=== PATIENT | male | born 1970 | race Caucasian/White ===

== ENCOUNTER 2018-03-12 11:09 | Inpatient (IN) | payer OTHER ==
[2018-03-12 13:16] VITALS: BMI 38.6
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
[2018-03-12] MEDS ORDERED: P-EPHED 60MG/TRIPROLIDI 2.5MG TABLET PO PRN (14:19)
[2018-03-12] MEDS ORDERED: MAGNESIUM HYDROX 2400MG/30ML ORAL SUSPENSION 30 ML CUP PO PRN (14:19)
[2018-03-12] MEDS ORDERED: MENTHOL/PHENOL 1 EACH UD MM PRN (14:19)
[2018-03-12] MEDS ORDERED: NICOTINE POLACRILEX 4 MG GUM BUC PRN ×2 (14:19→15:16)
[2018-03-12] MEDS ORDERED: hydrOXYzine PAMOATE 25 MG CAPSULE (FP) PO PRN (14:19)
[2018-03-12] MEDS ORDERED: IBUPROFEN 400 MG TABLET (FP) PO PRN (14:19)
[2018-03-12] MEDS ORDERED: MAGNESIUM CITRATE 300 ML BOTTLE PO PRN (14:19)
[2018-03-12] MEDS ORDERED: LOPERAMIDE HCL 2 MG CAPSULE PO PRN (14:19)
[2018-03-12] MEDS ORDERED: guaiFENesin/D-METHORPHAN HB 10 ML UNIT-DOSE CUPS PO PRN (14:19)
[2018-03-12] MEDS ORDERED: ACETAMINOPHEN 325 MG TABLET (FP) PO PRN (14:19)
[2018-03-12] MEDS ORDERED: MAG HYDROX/AL HYDROX/SIMETH 30 ML UNIT-DOSE CUP PO PRN (14:19)
[2018-03-12] MEDS ORDERED: ALBUTEROL SO4 8 GM HFA INHALER IH SCH (14:30)
[2018-03-12] MEDS ORDERED: diazePAM 5 MG TABLET PO ONE (15:00)
[2018-03-12] MEDS ORDERED: ALBUTEROL SO4 8 GM HFA INHALER IH PRN (15:14)
[2018-03-12] MEDS: GABAPENTIN 300 MG CAPSULE (FP) PO SCH (22:19)
[2018-03-12] MEDS: SPIRONOLACTONE 25 MG TABLET (FP) PO SCH (22:19)
[2018-03-12] MEDS: diazePAM 5 MG TABLET PO SCH (22:19)
[2018-03-12] MEDS: NYSTATIN/TRIAMCINOLONE TOPICAL CREAM 15 GM TUBE TP SCH (22:20)
[2018-03-12] MEDS: BACITRACIN 0.9 GM PACKET TP SCH (22:20)
[2018-03-12] MEDS: THIAMINE HCL 100 MG TABLET (FP) PO SCH (22:22)
[2018-03-13] MEDS: GABAPENTIN 300 MG CAPSULE (FP) PO SCH ×3 (06:03→22:07)
[2018-03-13] MEDS: diazePAM 5 MG TABLET PO SCH ×3 (06:03→22:07)
[2018-03-13] MEDS: ABACAVIR/DOLUTEGRAVIR/LAMIVUDI (TRIUMEQ) TABLET -NF PO SCH (08:28)
[2018-03-13] MEDS ORDERED: NICOTINE 21 MG/24 HOURS TOPICAL PATCH TD SCH (10:00)
[2018-03-13 10:08] LABS: HEMATOCRIT 36.4 % (35.4-49); HEMOGLOBIN 12.5 GM/dL (11.7-16.9); MCH 29.2 pg (25.7-33.7); MCHC 34.2 g/dl (32.0-35.9); MEAN CELL VOLUME 85.4 fl (80-96); MEAN PLT VOLUME 8.5 fl (7.5-11.1); PLATELET COUNT 172 K/MM3 (134-434); RBC 4.27 M/mm3 (4.00-5.60); RDW 16.9 % (11.9-15.9); WHITE BLOOD COUNT 2.1 K/mm3 (4.0-10.0)
[2018-03-13] MEDS: PRENATAL VITAMINS W/ FOLIC ACID TABLET (FP) PO SCH (10:48)
[2018-03-13] MEDS: SPIRONOLACTONE 25 MG TABLET (FP) PO SCH ×2 (10:49→22:07)
[2018-03-13] MEDS: ASPIRIN COATED 81 MG TABLET.EC PO SCH (10:49)
[2018-03-13] MEDS: BACITRACIN 0.9 GM PACKET TP SCH ×2 (10:49→22:07)
[2018-03-13] MEDS: NICOTINE 7 MG/24 HOURS TOPICAL PATCH TD SCH (10:49)
[2018-03-13] MEDS: NYSTATIN/TRIAMCINOLONE TOPICAL CREAM 15 GM TUBE TP SCH ×2 (10:49→22:07)
[2018-03-13 11:23] LABS: ALBUMIN 2.9 g/dl (3.4-5.0); ALK PHOS 122 U/L (45-117); ANION GAP 5 MMOL/L (8-16); BILIRUBIN,TOTAL 0.4 mg/dL (0.2-1); BLOOD UREA NITROGEN 23 mg/dL (7-18); CHLORIDE 105 mmol/L (98-107); CO2 28 mmol/L (21-32); CREATININE 0.8 mg/dL (0.55-1.3); GLUCOSE,RANDOM 66 mg/dL (74-106); POTASSIUM 4.2 mmol/L (3.5-5.1); SGOT/AST 47 U/L (15-37); SGPT/ALT 48 U/L (13-61); SODIUM 139 mmol/L (136-145); TOT PROT 6.4 g/dl (6.4-8.2)
[2018-03-13] MEDS ORDERED: ONDANSETRON *ODT* 4 MG TABLET SL PRN (11:42)
--- NOTE | 2018-03-13 11:42 | PN ---
S CIWA - CIWA Score Nausea/Vomitin-Mild Nausea/No Vomiting Muscle Tremors: 4-Moderate,w/Arms Extend Anxiety: 4-Mod. Anxious/Guarded Agitation: 4-Moderately Restless Paroxysmal Sweats: 3 Orientation: 0-Oriented Tacttile Disturbances: 0-None Auditory Disturbances: 0-None Visual Disturbances: 0-None Headache: 0-None Present CIWA-Ar Total Score: 16 BHS Progress Note (SOAP) Subjective: nausea chills sweats body aches interrupted sleep diarrhea Objective: 03/13/18 11:41 Vital Signs Temperature 99.1 F 03/13/18 09:08 Pulse Rate 75 03/13/18 09:08 Respiratory Rate 18 03/13/18 09:08 Blood Pressure 155/89 03/13/18 09:08 O2 Sat by Pulse Oximetry (%) Laboratory Tests 03/13/18 03/13/18 07:00 07:00 WBC 2.1 L RBC 4.27 Hgb 12.5 Hct 36.4 MCV 85.4 MCH 29.2 MCHC 34.2 RDW 16.9 H Plt Count 172 MPV 8.5 Sodium 139 Potassium 4.2 Chloride 105 Carbon Dioxide 28 Anion Gap 5 L BUN 23 H Creatinine 0.8 Creat Clearance w eGFR > 60 Random Glucose 66 L Calcium 8.0 L Total Bilirubin 0.4 AST 47 H ALT 48 Alkaline Phosphatase 122 H Total Protein 6.4 Albumin 2.9 L aaox3 ambulating no acute distress Assessment: 03/13/18 11:41 withdrawal sx Plan: continue detox increase fluids zofran sl prn immodium prn motrin 600mg prn
[2018-03-13] MEDS: THIAMINE HCL 100 MG TABLET (FP) PO SCH (22:07)
[2018-03-13] MEDS: MELATONIN 5 MG TABLETS PO PRN (22:08)
[2018-03-13] MEDS: IBUPROFEN 600 MG TABLET (FP) PO PRN (22:08)
[2018-03-14] MEDS: GABAPENTIN 300 MG CAPSULE (FP) PO SCH ×3 (05:36→21:46)
[2018-03-14] MEDS: diazePAM 5 MG TABLET PO PRN ×2 (05:37→13:58)
[2018-03-14] MEDS: ABACAVIR/DOLUTEGRAVIR/LAMIVUDI (TRIUMEQ) TABLET -NF PO SCH (08:01)
--- NOTE | 2018-03-14 09:02 | PN ---
[facility] CIWA - CIWA Score Nausea/Vomitin-Mild Nausea/No Vomiting Muscle Tremors: 4-Moderate,w/Arms Extend Anxiety: 3 Agitation: 3 Paroxysmal Sweats: 3 Orientation: 0-Oriented Tacttile Disturbances: 0-None Auditory Disturbances: 0-None Visual Disturbances: 0-None Headache: 0-None Present CIWA-Ar Total Score: 14 S Progress Note (SOAP) Subjective: dry skin nausea diarrhea interrupted sleep Objective: 03/14/18 08:50 Vital Signs Temperature 98.1 F 03/14/18 06:00 Pulse Rate 61 03/14/18 06:00 Respiratory Rate 20 03/14/18 06:00 Blood Pressure 102/58 L 03/14/18 06:00 O2 Sat by Pulse Oximetry (%) Laboratory Tests 03/13/18 03/13/18 07:00 07:00 WBC 2.1 L RBC 4.27 Hgb 12.5 Hct 36.4 MCV 85.4 MCH 29.2 MCHC 34.2 RDW 16.9 H Plt Count 172 MPV 8.5 Sodium 139 Potassium 4.2 Chloride 105 Carbon Dioxide 28 Anion Gap 5 L BUN 23 H Creatinine 0.8 Creat Clearance w eGFR > 60 Random Glucose 66 L Calcium 8.0 L Total Bilirubin 0.4 AST 47 H ALT 48 Alkaline Phosphatase 122 H Total Protein 6.4 Albumin 2.9 L aaox3 ambulating no acute distress Assessment: 03/14/18 08:50 withdrawal sx Plan: increase fluids continue detox eucerin
[2018-03-14] MEDS: PRENATAL VITAMINS W/ FOLIC ACID TABLET (FP) PO SCH (10:23)
[2018-03-14] MEDS: BACITRACIN 0.9 GM PACKET TP SCH ×2 (10:23→21:46)
[2018-03-14] MEDS: ASPIRIN COATED 81 MG TABLET.EC PO SCH (10:23)
[2018-03-14] MEDS: NYSTATIN/TRIAMCINOLONE TOPICAL CREAM 15 GM TUBE TP SCH ×2 (10:24→22:52)
[2018-03-14] MEDS: diazePAM 5 MG TABLET PO SCH ×2 (10:24→21:46)
[2018-03-14] MEDS: NICOTINE 7 MG/24 HOURS TOPICAL PATCH TD SCH (10:24)
[2018-03-14] MEDS: SPIRONOLACTONE 25 MG TABLET (FP) PO SCH ×2 (10:24→21:45)
[2018-03-14] MEDS: THIAMINE HCL 100 MG TABLET (FP) PO SCH (21:47)
[2018-03-15] MEDS: GABAPENTIN 300 MG CAPSULE (FP) PO SCH ×3 (05:51→22:25)
[2018-03-15] MEDS: diazePAM 5 MG TABLET PO PRN (05:53)
[2018-03-15] MEDS: ABACAVIR/DOLUTEGRAVIR/LAMIVUDI (TRIUMEQ) TABLET -NF PO SCH (08:08)
[2018-03-15] MEDS: BACITRACIN 0.9 GM PACKET TP SCH ×2 (10:35→22:24)
[2018-03-15] MEDS: PRENATAL VITAMINS W/ FOLIC ACID TABLET (FP) PO SCH (10:35)
[2018-03-15] MEDS: SPIRONOLACTONE 25 MG TABLET (FP) PO SCH ×2 (10:35→22:24)
[2018-03-15] MEDS: ASPIRIN COATED 81 MG TABLET.EC PO SCH (10:35)
[2018-03-15] MEDS: diazePAM 5 MG TABLET PO SCH ×2 (10:35→22:24)
[2018-03-15] MEDS: NYSTATIN/TRIAMCINOLONE TOPICAL CREAM 15 GM TUBE TP SCH ×2 (10:36→22:25)
[2018-03-15] MEDS: NICOTINE 7 MG/24 HOURS TOPICAL PATCH TD SCH (10:36)
--- NOTE | 2018-03-15 14:13 | PN ---
BHS Progress Note (SOAP) Subjective: Diarrhea, N/V, lower abdominal pain, shakes and sweats Objective: 03/15/18 14:13 Vital Signs - 8 hr 03/15/18 03/15/18 03/15/18 07:27 09:33 14:09 Temperature 97.7 F 97.7 F 97.9 F Pulse Rate 72 70 89 Respiratory 20 16 16 Rate Blood Pressure 118/67 136/66 150/92 Laboratory Last Values WBC 2.1 K/mm3 (4.0-10.0) L 03/13/18 07:00 RBC 4.27 M/mm3 (4.00-5.60) 03/13/18 07:00 Hgb 12.5 GM/dL (11.7-16.9) 03/13/18 07:00 Hct 36.4 % (35.4-49) 03/13/18 07:00 MCV 85.4 fl (80-96) 03/13/18 07:00 MCH 29.2 pg (25.7-33.7) 03/13/18 07:00 MCHC 34.2 g/dl (32.0-35.9) 03/13/18 07:00 RDW 16.9 % (11.9-15.9) H 03/13/18 07:00 Plt Count 172 K/MM3 (134-434) 03/13/18 07:00 MPV 8.5 fl (7.5-11.1) 03/13/18 07:00 Sodium 139 mmol/L (136-145) 03/13/18 07:00 Potassium 4.2 mmol/L (3.5-5.1) 03/13/18 07:00 Chloride 105 mmol/L (98-107) 03/13/18 07:00 Carbon Dioxide 28 mmol/L (21-32) 03/13/18 07:00 Anion Gap 5 MMOL/L (8-16) L 03/13/18 07:00 BUN 23 mg/dL (7-18) H 03/13/18 07:00 Creatinine 0.8 mg/dL (0.55-1.3) 03/13/18 07:00 Creat Clearance w eGFR > 60 (>60) 03/13/18 07:00 Random Glucose 66 mg/dL (74-106) L 03/13/18 07:00 Calcium 8.0 mg/dL (8.5-10.1) L 03/13/18 07:00 Total Bilirubin 0.4 mg/dL (0.2-1) 03/13/18 07:00 AST 47 U/L (15-37) H 03/13/18 07:00 ALT 48 U/L (13-61) 03/13/18 07:00 Alkaline Phosphatase 122 U/L (45-117) H 03/13/18 07:00 Total Protein 6.4 g/dl (6.4-8.2) 03/13/18 07:00 Albumin 2.9 g/dl (3.4-5.0) L 03/13/18 07:00 RPR Titer Nonreactive (NONREACTIVE) 03/13/18 07:00 Labs noted Assessment: 03/15/18 14:13 Withdrawal sx Plan: Continue detox
[2018-03-15] MEDS: IBUPROFEN 600 MG TABLET (FP) PO PRN (22:25)
[2018-03-15] MEDS: MELATONIN 5 MG TABLETS PO PRN (22:25)
[2018-03-15] MEDS: THIAMINE HCL 100 MG TABLET (FP) PO SCH (22:52)
[2018-03-16] MEDS: GABAPENTIN 300 MG CAPSULE (FP) PO SCH (07:47)
[2018-03-16] MEDS: ABACAVIR/DOLUTEGRAVIR/LAMIVUDI (TRIUMEQ) TABLET -NF PO SCH (07:48)
[2018-03-16 09:56] VITALS: BP 105/60; PULSE 71; TEMP 97.5
[2018-03-16] MEDS ORDERED: diazePAM 5 MG TABLET PO SCH (10:00)
[2018-03-16] MEDS: PRENATAL VITAMINS W/ FOLIC ACID TABLET (FP) PO SCH (10:10)
[2018-03-16] MEDS: SPIRONOLACTONE 25 MG TABLET (FP) PO SCH (10:11)
[2018-03-16] MEDS: BACITRACIN 0.9 GM PACKET TP SCH (10:11)
[2018-03-16] MEDS: NYSTATIN/TRIAMCINOLONE TOPICAL CREAM 15 GM TUBE TP SCH (10:11)
[2018-03-16] MEDS: ASPIRIN COATED 81 MG TABLET.EC PO SCH (10:11)
[2018-03-16] MEDS: NICOTINE 7 MG/24 HOURS TOPICAL PATCH TD SCH (10:11)
--- NOTE | 2018-03-16 13:09 | DS ---
[facility] Detox Discharge Summary Admission Date: 03/12/18 Discharge Date: 03/16/18 - History Present History: Alcohol Dependence, Sedative Dependence Additional Comments: 47 years old male admitted on 03/12/18 for alcohol and benzo withdrawal sx completed detox regimen tolerated well alert no acute distress aftercare [facility] - Physical Exam Results Vital Signs: Vital Signs Temperature 97.5 F L 03/16/18 09:56 Pulse Rate 71 03/16/18 09:56 Respiratory Rate 16 03/16/18 09:56 Blood Pressure 105/60 03/16/18 09:56 O2 Sat by Pulse Oximetry (%) Pertinent Admission Physical Exam Findings: alcohol and benzo withdrawal sx Vital Signs Temperature 97.5 F L 03/16/18 09:56 Pulse Rate 71 03/16/18 09:56 Respiratory Rate 16 03/16/18 09:56 Blood Pressure 105/60 03/16/18 09:56 O2 Sat by Pulse Oximetry (%) Laboratory Last Values WBC 2.1 K/mm3 (4.0-10.0) L 03/13/18 07:00 RBC 4.27 M/mm3 (4.00-5.60) 03/13/18 07:00 Hgb 12.5 GM/dL (11.7-16.9) 03/13/18 07:00 Hct 36.4 % (35.4-49) 03/13/18 07:00 MCV 85.4 fl (80-96) 03/13/18 07:00 MCH 29.2 pg (25.7-33.7) 03/13/18 07:00 MCHC 34.2 g/dl (32.0-35.9) 03/13/18 07:00 RDW 16.9 % (11.9-15.9) H 03/13/18 07:00 Plt Count 172 K/MM3 (134-434) 03/13/18 07:00 MPV 8.5 fl (7.5-11.1) 03/13/18 07:00 Sodium 139 mmol/L (136-145) 03/13/18 07:00 Potassium 4.2 mmol/L (3.5-5.1) 03/13/18 07:00 Chloride 105 mmol/L (98-107) 03/13/18 07:00 Carbon Dioxide 28 mmol/L (21-32) 03/13/18 07:00 Anion Gap 5 MMOL/L (8-16) L 03/13/18 07:00 BUN 23 mg/dL (7-18) H 03/13/18 07:00 Creatinine 0.8 mg/dL (0.55-1.3) 03/13/18 07:00 Creat Clearance w eGFR > 60 (>60) 03/13/18 07:00 Random Glucose 66 mg/dL (74-106) L 03/13/18 07:00 Calcium 8.0 mg/dL (8.5-10.1) L 03/13/18 07:00 Total Bilirubin 0.4 mg/dL (0.2-1) 03/13/18 07:00 AST 47 U/L (15-37) H 03/13/18 07:00 ALT 48 U/L (13-61) 03/13/18 07:00 Alkaline Phosphatase 122 U/L (45-117) H 03/13/18 07:00 Total Protein 6.4 g/dl (6.4-8.2) 03/13/18 07:00 Albumin 2.9 g/dl (3.4-5.0) L 03/13/18 07:00 RPR Titer Nonreactive (NONREACTIVE) 03/13/18 07:00 lab noted [facility] Hospital Course: Detox Protocol Followed, Detoxed Safely, Responded well, Discharged Condition Good, Rehab Referral Accepted Patient has Accepted a Rehab Referral to: [facility] - Medication Discharge Medications: Ambulatory Orders Albuterol Sulfate Inhaler - [Ventolin HFA Inhaler -] 2 inh PO Q4H #1 canister Gabapentin [Neurontin -] 600 mg PO TID #90 capsule 04/02/14 Spironolactone 50 mg PO BID #30 tablet 04/02/14 Abacavir/Dolutegravir/Lamivudi [Triumeq 600-50-300 mg Tablet] 1 each PO DAILY Aspirin [Aspirin EC] 81 mg PO DAILY 03/12/18 Quetiapine Fumarate [Seroquel -] 50 mg PO HS 03/12/18 - Diagnosis (1) Sedative, hypnotic or anxiolytic dependence with withdrawal, uncomplicated Status: Acute (2) Asthma Status: Chronic Qualifiers: Asthma severity: mild Asthma persistence: intermittent Asthma complication type: with status asthmaticus Qualified Code(s): J45.22 - Mild intermittent asthma with status asthmaticus (3) AIDS (acquired immune deficiency syndrome) Status: Chronic (4) Alcohol dependence, episodic drinking behavior Status: Acute - AMA Did Patient Leave Against Medical Advice: No
== END 2018-03-16 11:06 | disposition other institution (70) | DRG 774 ==
LOC: YASAS 11:09 → Y6N 14:37
PROC: HZ2ZZZZ Detoxification Services for Substance Abuse Treatment (ICD-10-PCS; principal; 2018-03-12)
DX: F10.230 Alcohol dependence with withdrawal, uncomplicated (principal); F13.230 Sedative, hypnotic or anxiolytic dependence with withdrawal, uncomplicated; F14.20 Cocaine dependence, uncomplicated; F19.24 Other psychoactive substance dependence with psychoactive substance-induced mood disorder; F32.9 Major depressive disorder, single episode, unspecified; B20 Human immunodeficiency virus [HIV] disease; J45.22 Mild intermittent asthma with status asthmaticus; G62.9 Polyneuropathy, unspecified; B18.2 Chronic viral hepatitis C; M54.5 Low back pain; G89.29 Other chronic pain; M46.90 Unspecified inflammatory spondylopathy, site unspecified; M12.9 Arthropathy, unspecified; Z88.2 Allergy status to sulfonamides; Z88.1 Allergy status to other antibiotic agents; Z91.013 Allergy to seafood; Z85.72 Personal history of non-Hodgkin lymphomas
CPT/HCPCS: 36415; 80053; 85027; 86593

== ENCOUNTER 2018-03-16 11:08 | Inpatient (IN) | payer OTHER ==
[2018-03-16] MEDS ORDERED: NICOTINE 14 MG/24 HOURS TOPICAL PATCH TD PRN (13:12)
[2018-03-16] MEDS ORDERED: MAG HYDROX/AL HYDROX/SIMETH 30 ML UNIT-DOSE CUP PO PRN (13:12)
[2018-03-16] MEDS ORDERED: NICOTINE POLACRILEX 2 MG GUM BUC PRN (13:12)
[2018-03-16] MEDS ORDERED: MAGNESIUM CITRATE 300 ML BOTTLE PO PRN (13:12)
[2018-03-16] MEDS ORDERED: LOPERAMIDE HCL 2 MG CAPSULE PO PRN (13:12)
[2018-03-16] MEDS ORDERED: P-EPHED 60MG/TRIPROLIDI 2.5MG TABLET PO PRN (13:12)
[2018-03-16] MEDS ORDERED: MENTHOL/PHENOL 1 EACH UD MM PRN (13:12)
[2018-03-16] MEDS ORDERED: ACETAMINOPHEN 325 MG TABLET (FP) PO PRN (13:12)
[2018-03-16] MEDS ORDERED: MAGNESIUM HYDROX 2400MG/30ML ORAL SUSPENSION 30 ML CUP PO PRN (13:12)
[2018-03-16] MEDS ORDERED: IBUPROFEN 400 MG TABLET (FP) PO PRN (13:12)
[2018-03-16] MEDS ORDERED: guaiFENesin/D-METHORPHAN HB 10 ML UNIT-DOSE CUPS PO PRN (13:12)
--- NOTE | 2018-03-16 13:12 | HP ---
[facility] Rehab Assess/Revision - Admission History Admitted to Rehab from: [facility] Date of Admission to Rehab: 03/16/18 - Vital signs Vital Signs: Vital Signs Period Temp Pulse Resp BP Sys/Colon Pulse Ox Last 24 Hr 98.1 F 74 18 111/64 - Findings Detox History & Physical reviewed: Yes Concur with findings: Yes Comments/Additional Findings: transferred from detox to rehab admission as per protocol Inpatient Rehab Admission - Initial Determination Are CD services needed?: Yes Free of communicable disease: Yes Not in need of hospitalization: Yes - Rehab Admission Criteria Previous failed treatment: Yes Poor recovery environment: Yes Comorbidities: Yes Lacks judgement: No Patient is meeting Inpatient Rehab admission criteria:: Yes
[2018-03-16] MEDS ORDERED: ALBUTEROL SO4 8 GM HFA INHALER IH PRN (13:13)
[2018-03-16] MEDS: GABAPENTIN 300 MG CAPSULE (FP) PO SCH ×2 (14:05→22:49)
--- NOTE | 2018-03-16 15:27 | PN ---
S Progress Note Note: Psychiatric nurse practitioner administrative receptionist note: Patient transferred from 3E to 6N. Chart reviewed. Patient did not receive psychotropic medications while in detox. Patient requesting seroquel. No recent prescription of seroquel noted on pharmacy claims. Patient encouraged to accept melatonin for sleep and to speak to unit psychiatrist in the morning.
[2018-03-16] MEDS ORDERED: MELATONIN 5 MG TABLETS PO PRN (22:00)
[2018-03-16] MEDS: SPIRONOLACTONE 25 MG TABLET (FP) PO SCH (22:49)
[2018-03-16] MEDS: THIAMINE HCL 100 MG TABLET (FP) PO SCH (22:50)
[2018-03-17] MEDS: GABAPENTIN 300 MG CAPSULE (FP) PO SCH ×3 (06:41→21:34)
[2018-03-17] MEDS ORDERED: PT OWN MED DRAWER 7, Y5N ONE (08:45)
[2018-03-17] MEDS ORDERED: PATIENT'S OWN MEDICATION (NON-FORMULARY) (Abacavir/Dolutegravir/Lamivudi [Triumeq 600-50-3 PO SCH (10:00)
[2018-03-17] MEDS ORDERED: ABACAVIR/DOLUTEGRAVIR/LAMIVUDI (TRIUMEQ) TABLET -NF PO SCH (10:00)
[2018-03-17] MEDS: DOLUTEGRAVIR SODIUM 50 MG TABLET (NON-FORMULARY) PO SCH (10:43)
[2018-03-17] MEDS: SPIRONOLACTONE 25 MG TABLET (FP) PO SCH ×2 (10:43→21:33)
[2018-03-17] MEDS: LIDOCAINE 5% TOPICAL PATCH TP SCH (10:45)
[2018-03-17] MEDS: PRENATAL VITAMINS W/ FOLIC ACID TABLET (FP) PO SCH (10:45)
[2018-03-17] MEDS: ABACAVIR SULFATE 300 MG TABLET PO SCH (10:49)
--- NOTE | 2018-03-17 11:31 | PN ---
BHS Progress Note Note: PATIENT SEEN FOR C/O LOWER PELVIC AREA SPASMS. PATIENT DENIES FREQUENCY, URGENCY AND BURNING UPON URINATION. PATIENT STATES HAVING DIARRHEA AND GIVEN IMMODIUM WITH MILD RELIEF. Vital Signs Temperature 98.4 F 03/17/18 07:13 Pulse Rate 78 03/17/18 07:13 Respiratory Rate 18 03/17/18 07:13 Blood Pressure 109/66 03/17/18 07:13 O2 Sat by Pulse Oximetry (%) PE: ALERT AND ORIENTED X 3 SKIN WARM AND DRY CAR S1S2 RESP CTA BL GI SOFT, BS+, MILD TENDERNESS TO MID-LOWER ABDOMINAL/PELVIC AREA EXT FULL ROM A/P: BLADDER SPASMS WILL ORDER UA ENCOURAGE ORAL FLUIDS CONTINUE TO MONITOR CLINICALLY
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
[2018-03-17] MEDS: THIAMINE HCL 100 MG TABLET (FP) PO SCH (21:34)
[2018-03-17] MEDS ORDERED: LIDOCAINE PATCH REMOVAL MC SCH (22:00)
[2018-03-18] MEDS: GABAPENTIN 300 MG CAPSULE (FP) PO SCH ×2 (06:51→14:30)
[2018-03-18 07:13] VITALS: BP 101/65; PULSE 71; TEMP 97.6
[2018-03-18] MEDS: LIDOCAINE 5% TOPICAL PATCH TP SCH (10:06)
[2018-03-18] MEDS: SPIRONOLACTONE 25 MG TABLET (FP) PO SCH (10:06)
[2018-03-18] MEDS: PRENATAL VITAMINS W/ FOLIC ACID TABLET (FP) PO SCH (10:08)
[2018-03-18] MEDS ORDERED: PT OWN MED DRAWER 7, Y5N ONE (10:08)
[2018-03-18] MEDS: ABACAVIR SULFATE 300 MG TABLET PO SCH (11:47)
[2018-03-18] MEDS: DOLUTEGRAVIR SODIUM 50 MG TABLET (NON-FORMULARY) PO SCH (11:47)
[2018-03-18] MEDS ORDERED: ABACAVIR/DOLUTEGRAVIR/LAMIVUDI (TRIUMEQ) TABLET -NF PO SCH (12:00)
--- NOTE | 2018-03-18 15:23 | PN ---
S Progress Note Note: Psychiatric nurse practitioner note: Call received by RN stating patient is leaving rehab. States she is no longer interested in remaining in rehab. Patient signing out of 3E rehabilitation.
[2018-03-18 17:23] LABS: URINE APPEARANCE CLEAR; URINE BILIRUBIN NEGATIVE (<2.0 mg/dL); URINE COLOR STRAW; URINE GLUCOSE (UA) NEGATIVE (NEGATIVE); URINE KETONE NEGATIVE (NEGATIVE); URINE LEUK ESTERASE NEGATIVE (NEGATIVE); URINE NITRITE NEGATIVE (NEGATIVE); URINE PROTEIN NEGATIVE (NEGATIVE); URINE UROBILINOGEN NEGATIVE mg/dL (0.2-1.0)
[2018-03-19] MEDS ORDERED: ASPIRIN COATED 81 MG TABLET.EC PO SCH (10:00)
== END 2018-03-18 15:30 | disposition left against medical advice (07) | DRG 770 ==
LOC: YASAS 11:08 → Y3E 11:10
PROVIDERS: ADMIT Psychiatry & Neurology Psychiatry; ATTEND Psychiatry & Neurology Psychiatry
PROC: HZ42ZZZ Group Counseling for Substance Abuse Treatment, Cognitive-Behavioral (ICD-10-PCS; principal; 2018-03-16)
DX: F10.20 Alcohol dependence, uncomplicated (principal); F13.20 Sedative, hypnotic or anxiolytic dependence, uncomplicated; F14.20 Cocaine dependence, uncomplicated; F19.24 Other psychoactive substance dependence with psychoactive substance-induced mood disorder; B20 Human immunodeficiency virus [HIV] disease; J45.22 Mild intermittent asthma with status asthmaticus; M54.5 Low back pain; G89.29 Other chronic pain; G62.9 Polyneuropathy, unspecified; N32.89 Other specified disorders of bladder; Z88.2 Allergy status to sulfonamides; Z88.1 Allergy status to other antibiotic agents; Z91.013 Allergy to seafood
CPT/HCPCS: 81003

== ENCOUNTER 2018-04-09 08:19 | Inpatient (IN) | payer OTHER ==
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
[2018-04-09] MEDS ORDERED: chlordiazePOXIDE HCL 25 MG CAPSULE PO PRN (09:26)
[2018-04-09] MEDS ORDERED: ACETAMINOPHEN 325 MG TABLET (FP) PO PRN (09:26)
[2018-04-09] MEDS ORDERED: P-EPHED 60MG/TRIPROLIDI 2.5MG TABLET PO PRN (09:26)
[2018-04-09] MEDS ORDERED: MENTHOL/PHENOL 1 EACH UD MM PRN (09:26)
[2018-04-09] MEDS ORDERED: MAG HYDROX/AL HYDROX/SIMETH 30 ML UNIT-DOSE CUP PO PRN (09:26)
[2018-04-09] MEDS ORDERED: MAGNESIUM CITRATE 300 ML BOTTLE PO PRN (09:26)
[2018-04-09] MEDS ORDERED: guaiFENesin/D-METHORPHAN HB 10 ML UNIT-DOSE CUPS PO PRN (09:26)
[2018-04-09] MEDS ORDERED: MAGNESIUM HYDROX 2400MG/30ML ORAL SUSPENSION 30 ML CUP PO PRN (09:26)
[2018-04-09] MEDS ORDERED: IBUPROFEN 400 MG TABLET (FP) PO PRN (09:26)
[2018-04-09 09:28] VITALS: BMI 40.4
[2018-04-09] MEDS: BACITRACIN 0.9 GM PACKET TP SCH ×2 (11:12→22:11)
[2018-04-09] MEDS: SPIRONOLACTONE 25 MG TABLET (FP) PO SCH ×2 (11:12→21:34)
[2018-04-09] MEDS: ASPIRIN COATED 81 MG TABLET.EC PO SCH (11:12)
[2018-04-09] MEDS: chlordiazePOXIDE HCL 25 MG CAPSULE PO SCH ×3 (11:13→22:11)
[2018-04-09] MEDS: PRENATAL VITAMINS W/ FOLIC ACID TABLET (FP) PO SCH (11:13)
[2018-04-09] MEDS: NICOTINE 14 MG/24 HOURS TOPICAL PATCH TD SCH (11:14)
[2018-04-09] MEDS: ALBUTEROL SO4 8 GM HFA INHALER IH SCH ×4 (11:14→21:33)
[2018-04-09] MEDS: CLOTRIMAZOLE 10 MG TROCHE (FP) PO SCH ×3 (13:28→21:36)
[2018-04-09] MEDS: GABAPENTIN 300 MG CAPSULE (FP) PO SCH ×2 (13:28→21:33)
[2018-04-09] MEDS: AMOXICILLIN 500 MG CAPSULE (FP) PO SCH ×2 (13:28→21:34)
[2018-04-09 15:08] LABS: URINE APPEARANCE SLCLOUDY; URINE BILIRUBIN NEGATIVE (<2.0 mg/dL); URINE COLOR YELLOW; URINE GLUCOSE (UA) NEGATIVE (NEGATIVE); URINE KETONE NEGATIVE (NEGATIVE); URINE LEUK ESTERASE NEGATIVE (NEGATIVE); URINE NITRITE NEGATIVE (NEGATIVE); URINE PROTEIN NEGATIVE (NEGATIVE)
[2018-04-09] MEDS: THIAMINE HCL 100 MG TABLET (FP) PO SCH (21:34)
[2018-04-09] MEDS ORDERED: MELATONIN 5 MG TABLETS PO PRN (22:00)
[2018-04-10] MEDS: ALBUTEROL SO4 8 GM HFA INHALER IH SCH (01:30)
[2018-04-10] MEDS: ALBUTEROL SO4 8 GM HFA INHALER IH PRN ×2 (03:08→09:08)
[2018-04-10] MEDS: chlordiazePOXIDE HCL 25 MG CAPSULE PO SCH ×4 (05:36→22:22)
[2018-04-10] MEDS: CLOTRIMAZOLE 10 MG TROCHE (FP) PO SCH ×5 (05:37→22:27)
[2018-04-10] MEDS: AMOXICILLIN 500 MG CAPSULE (FP) PO SCH ×3 (05:37→22:22)
[2018-04-10] MEDS: GABAPENTIN 300 MG CAPSULE (FP) PO SCH ×3 (05:38→22:23)
[2018-04-10 10:11] LABS: HEMATOCRIT 37.7 % (35.4-49); MCH 27.9 pg (25.7-33.7); MCHC 31.9 g/dl (32.0-35.9); MEAN CELL VOLUME 87.6 fl (80-96); MEAN PLT VOLUME 8.6 fl (7.5-11.1); PLATELET COUNT 203 K/MM3 (134-434); RBC 4.31 M/mm3 (4.00-5.60); RDW 16.6 % (11.9-15.9); WHITE BLOOD COUNT 3.4 K/mm3 (4.0-10.0)
[2018-04-10 10:14] LABS: ALBUMIN 3.2 g/dl (3.4-5.0); ALK PHOS 144 U/L (45-117); ANION GAP 5 MMOL/L (8-16); BILIRUBIN,TOTAL 0.2 mg/dL (0.2-1); BLOOD UREA NITROGEN 14 mg/dL (7-18); CALCIUM 8.4 mg/dL (8.5-10.1); CHLORIDE 109 mmol/L (98-107); CO2 27 mmol/L (21-32); GLUCOSE,RANDOM 94 mg/dL (74-106); SGOT/AST 29 U/L (15-37); SGPT/ALT 33 U/L (13-61); SODIUM 141 mmol/L (136-145); TOT PROT 7.1 g/dl (6.4-8.2)
[2018-04-10] MEDS ORDERED: ALBUTEROL SO4 2.5/IPRATROPIUM 0.5 INH SOL 3 ML VIAL.NEB. NEB ONE (10:19)
[2018-04-10] MEDS ORDERED: ALBUTEROL SO4 2.5/IPRATROPIUM 0.5 INH SOL 3 ML VIAL.NEB. NEB PRN (10:19)
[2018-04-10] MEDS: predniSONE 20 MG TABLET (UD) PO SCH (11:03)
[2018-04-10] MEDS: PRENATAL VITAMINS W/ FOLIC ACID TABLET (FP) PO SCH (11:04)
[2018-04-10] MEDS: ASPIRIN COATED 81 MG TABLET.EC PO SCH (11:05)
[2018-04-10] MEDS: BACITRACIN 0.9 GM PACKET TP SCH ×2 (11:05→22:48)
[2018-04-10] MEDS: SPIRONOLACTONE 25 MG TABLET (FP) PO SCH ×2 (11:05→22:23)
[2018-04-10] MEDS: NICOTINE 14 MG/24 HOURS TOPICAL PATCH TD SCH (11:21)
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
--- NOTE | 2018-04-10 14:20 | PN ---
[facility] CIWA - CIWA Score Nausea/Vomitin-No Nausea/No Vomiting Muscle Tremors: None Anxiety: 4-Mod. Anxious/Guarded Agitation: 4-Moderately Restless Paroxysmal Sweats: 2 Orientation: 0-Oriented Tacttile Disturbances: 3-Moderate Itch/Numb/Burn Auditory Disturbances: 0-None Visual Disturbances: 1-Very Mild Sensitivity Headache: 0-None Present CIWA-Ar Total Score: 14 BHS Progress Note (SOAP) Subjective: Anxious, Restless, Interrupted Sleep. Patient reports Shortness of Breath that started earlier today. Patient reports history of Asthma and Chronic Emphysema. Objective: PATIENT A & O X 3, OBSERVED AMBULATING ON UNIT. WHEEZING AUSCULTATED BILATERALLY IN LUNGS. PATIENT APPEARS DYSPNIEC, VOICE SOUNDS SOMEWHAT HOARSE IN RELATION TO HOW IT SOUNDED YESTERDAY. 04/10/18 14:22 Vital Signs Temperature 98.1 F 04/10/18 09:05 Pulse Rate 81 04/10/18 09:05 Respiratory Rate 18 04/10/18 09:05 Blood Pressure 107/60 04/10/18 09:05 O2 Sat by Pulse Oximetry (%) Laboratory Tests 04/09/18 04/10/18 04/10/18 13:00 06:00 06:00 WBC 3.4 L RBC 4.31 Hgb 12.0 Hct 37.7 MCV 87.6 MCH 27.9 MCHC 31.9 L RDW 16.6 H Plt Count 203 MPV 8.6 Sodium 141 Potassium 4.0 Chloride 109 H Carbon Dioxide 27 Anion Gap 5 L BUN 14 Creatinine 1.0 Creat Clearance w eGFR > 60 Random Glucose 94 Calcium 8.4 L Total Bilirubin 0.2 AST 29 ALT 33 Alkaline Phosphatase 144 H Total Protein 7.1 Albumin 3.2 L Urine Color Yellow Urine Appearance Slcloudy Urine pH 5.0 D Ur Specific [place] 1.025 Urine Protein Negative Urine Glucose (UA) Negative Urine Ketones Negative Urine Blood Negative Urine Nitrite Negative Urine Bilirubin Negative Urine Urobilinogen 2.0 Ur Leukocyte Esterase Negative RPR Titer 04/10/18 06:00 WBC RBC Hgb Hct MCV MCH MCHC RDW Plt Count MPV Sodium Potassium Chloride Carbon Dioxide Anion Gap BUN Creatinine Creat Clearance w eGFR Random Glucose Calcium Total Bilirubin AST ALT Alkaline Phosphatase Total Protein Albumin Urine Color Urine Appearance Urine pH Ur Specific [place] Urine Protein Urine Glucose (UA) Urine Ketones Urine Blood Urine Nitrite Urine Bilirubin Urine Urobilinogen Ur Leukocyte Esterase RPR Titer Nonreactive LABS NOTED. PATIENT HAS HAD LOW WBC LEVELS ON PREVIOUS ADMISSIONS. 04/10/18 14:25 Assessment: 04/10/18 14:24 WITHDRAWAL SYMPTOMS. LEUKOPENIA. ACUTE ASTHMA EXACERBATION. 04/10/18 14:25 Plan: CONTINUE DETOX. PREDNISONE, 20 MG PO DAILY (FIRST DOSE STAT). MONTELEUKAST, PO HS ORDERED. SPIRIVA RESPIMAT, 1 INHALATION DAILY (FIRST DOSE NOW) ORDERED (PATIENT REPORTS HISTORY OF TAKING OUTPATIENT). SYMBICORT, 80/4.5, 2 INH BID (FIRST DOSE NOW) ORDERED (PATIENT REPORTS HISTORY OF TAKING DULERA OUTPATIENT, DULERA NOT CURRENTLY AVAILABLE IN [facility]) . ALBUTEROL NEBULIZER PRN ORDERED.
[2018-04-10] MEDS: BUDESONIDE/FORMETEROL FUMARATE 80/4.5 mcg INHALER IH SCH ×2 (15:01→22:24)
[2018-04-10] MEDS: TIOTROPIUM BROMIDE 2.5 MCG (SPIRIVA) RESPIMAT INHALER IH SCH (15:01)
[2018-04-10] MEDS: MONTELUKAST NA 10 MG TABLET PO SCH (22:22)
[2018-04-10] MEDS: THIAMINE HCL 100 MG TABLET (FP) PO SCH (22:22)
[2018-04-10] MEDS: QUEtiapine FUMARATE 50 MG TABLET PO SCH (22:24)
[2018-04-11] MEDS: GABAPENTIN 300 MG CAPSULE (FP) PO SCH ×3 (06:16→22:33)
[2018-04-11] MEDS: chlordiazePOXIDE HCL 25 MG CAPSULE PO SCH (06:17)
[2018-04-11] MEDS: CLOTRIMAZOLE 10 MG TROCHE (FP) PO SCH ×5 (06:17→23:05)
[2018-04-11] MEDS: AMOXICILLIN 500 MG CAPSULE (FP) PO SCH ×3 (06:17→22:33)
[2018-04-11] MEDS: LOPERAMIDE HCL 2 MG CAPSULE PO PRN (06:23)
[2018-04-11] MEDS: ALBUTEROL SO4 8 GM HFA INHALER IH PRN (07:10)
[2018-04-11] MEDS: PRENATAL VITAMINS W/ FOLIC ACID TABLET (FP) PO SCH (11:51)
[2018-04-11] MEDS: chlordiazePOXIDE 5 MG CAPSULE PO SCH ×3 (11:51→22:31)
[2018-04-11] MEDS: ASPIRIN COATED 81 MG TABLET.EC PO SCH (11:52)
[2018-04-11] MEDS: SPIRONOLACTONE 25 MG TABLET (FP) PO SCH ×2 (11:52→22:32)
[2018-04-11] MEDS: BACITRACIN 0.9 GM PACKET TP SCH ×2 (11:52→22:33)
[2018-04-11] MEDS: BUDESONIDE/FORMETEROL FUMARATE 80/4.5 mcg INHALER IH SCH ×2 (11:54→23:05)
[2018-04-11] MEDS: predniSONE 20 MG TABLET (UD) PO SCH (11:54)
[2018-04-11] MEDS: TIOTROPIUM BROMIDE 2.5 MCG (SPIRIVA) RESPIMAT INHALER IH SCH (11:54)
[2018-04-11] MEDS: NICOTINE 14 MG/24 HOURS TOPICAL PATCH TD SCH (11:56)
--- NOTE | 2018-04-11 18:36 | PN ---
[facility] CIWA - CIWA Score Nausea/Vomitin-No Nausea/No Vomiting Muscle Tremors: None Anxiety: 4-Mod. Anxious/Guarded Agitation: 4-Moderately Restless Paroxysmal Sweats: No Perspiration Orientation: 0-Oriented Tacttile Disturbances: 2-Mild Itch/Numbness/Burn Auditory Disturbances: 0-None Visual Disturbances: 0-None Headache: 1-Very Mild CIWA-Ar Total Score: 11 S Progress Note (SOAP) Subjective: Anxious, Interrupted Sleep. Patient reports that SOB that he was experiencing yesterday has subsided considerably today. Objective: PATIENT A & O X 3, OBSERVED AMBULATING ON UNIT. IN NO ACUTE DISTRESS. 04/11/18 18:33 Vital Signs Temperature 98.1 F 04/11/18 15:52 Pulse Rate 83 04/11/18 15:52 Respiratory Rate 20 04/11/18 15:52 Blood Pressure 133/71 04/11/18 15:52 O2 Sat by Pulse Oximetry (%) Laboratory Tests 04/09/18 04/10/18 04/10/18 13:00 06:00 06:00 WBC 3.4 L RBC 4.31 Hgb 12.0 Hct 37.7 MCV 87.6 MCH 27.9 MCHC 31.9 L RDW 16.6 H Plt Count 203 MPV 8.6 Sodium 141 Potassium 4.0 Chloride 109 H Carbon Dioxide 27 Anion Gap 5 L BUN 14 Creatinine 1.0 Creat Clearance w eGFR > 60 Random Glucose 94 Calcium 8.4 L Total Bilirubin 0.2 AST 29 ALT 33 Alkaline Phosphatase 144 H Total Protein 7.1 Albumin 3.2 L Urine Color Yellow Urine Appearance Slcloudy Urine pH 5.0 D Ur Specific [place] 1.025 Urine Protein Negative Urine Glucose (UA) Negative Urine Ketones Negative Urine Blood Negative Urine Nitrite Negative Urine Bilirubin Negative Urine Urobilinogen 2.0 Ur Leukocyte Esterase Negative RPR Titer 04/10/18 06:00 WBC RBC Hgb Hct MCV MCH MCHC RDW Plt Count MPV Sodium Potassium Chloride Carbon Dioxide Anion Gap BUN Creatinine Creat Clearance w eGFR Random Glucose Calcium Total Bilirubin AST ALT Alkaline Phosphatase Total Protein Albumin Urine Color Urine Appearance Urine pH Ur Specific [place] Urine Protein Urine Glucose (UA) Urine Ketones Urine Blood Urine Nitrite Urine Bilirubin Urine Urobilinogen Ur Leukocyte Esterase RPR Titer Nonreactive LABS NOTED. Assessment: 04/11/18 18:33 WITHDRAWAL SYMPTOMS. Plan: CONTINUE DETOX.
[2018-04-11] MEDS: QUEtiapine FUMARATE 50 MG TABLET PO SCH (22:32)
[2018-04-11] MEDS: THIAMINE HCL 100 MG TABLET (FP) PO SCH (22:32)
[2018-04-11] MEDS: MONTELUKAST NA 10 MG TABLET PO SCH (22:33)
[2018-04-11] MEDS: METHYL SALICYLATE/MENTHOL OINT 30 GM TUBE TP SCH (22:33)
[2018-04-12] MEDS: ALBUTEROL SO4 0.083% IH SOL 2.5 MG/3 ML VIAL.NEB. NEB PRN ×2 (01:43→18:48)
[2018-04-12] MEDS: LOPERAMIDE HCL 2 MG CAPSULE PO PRN (04:44)
[2018-04-12] MEDS: GABAPENTIN 300 MG CAPSULE (FP) PO SCH ×3 (06:28→22:01)
[2018-04-12] MEDS: chlordiazePOXIDE 5 MG CAPSULE PO SCH (06:28)
[2018-04-12] MEDS: CLOTRIMAZOLE 10 MG TROCHE (FP) PO SCH ×5 (06:29→22:02)
[2018-04-12] MEDS: AMOXICILLIN 500 MG CAPSULE (FP) PO SCH ×3 (06:29→22:02)
--- NOTE | 2018-04-12 09:57 | PN ---
BHS Progress Note (SOAP) Subjective: pt states still with nausea and vomiting and diarrhea, day #3 of detox protocol O Vital Signs - 24 hr 04/11/18 04/11/18 04/12/18 15:52 18:39 00:04 Temperature 98.1 F 98.4 F 98.1 F Pulse Rate 83 88 92 H Respiratory 20 18 18 Rate Blood Pressure 133/71 122/72 121/72 04/12/18 04/12/18 04/12/18 00:30 03:30 07:07 Temperature 98.6 F Pulse Rate 84 Respiratory 18 18 20 Rate Blood Pressure 105/68 Laboratory Tests 04/09/18 04/10/18 04/10/18 13:00 06:00 06:00 WBC 3.4 L RBC 4.31 Hgb 12.0 Hct 37.7 MCV 87.6 MCH 27.9 MCHC 31.9 L RDW 16.6 H Plt Count 203 MPV 8.6 Sodium 141 Potassium 4.0 Chloride 109 H Carbon Dioxide 27 Anion Gap 5 L BUN 14 Creatinine 1.0 Creat Clearance w eGFR > 60 Random Glucose 94 Calcium 8.4 L Total Bilirubin 0.2 AST 29 ALT 33 Alkaline Phosphatase 144 H Total Protein 7.1 Albumin 3.2 L Urine Color Yellow Urine Appearance Slcloudy Urine pH 5.0 D Ur Specific [place] 1.025 Urine Protein Negative Urine Glucose (UA) Negative Urine Ketones Negative Urine Blood Negative Urine Nitrite Negative Urine Bilirubin Negative Urine Urobilinogen 2.0 Ur Leukocyte Esterase Negative RPR Titer 04/10/18 06:00 WBC RBC Hgb Hct MCV MCH MCHC RDW Plt Count MPV Sodium Potassium Chloride Carbon Dioxide Anion Gap BUN Creatinine Creat Clearance w eGFR Random Glucose Calcium Total Bilirubin AST ALT Alkaline Phosphatase Total Protein Albumin Urine Color Urine Appearance Urine pH Ur Specific [place] Urine Protein Urine Glucose (UA) Urine Ketones Urine Blood Urine Nitrite Urine Bilirubin Urine Urobilinogen Ur Leukocyte Esterase RPR Titer Nonreactive a/p: alcohol detox protocol- day #3 pt with GI SX- d/w nursing staff and pt to use prn meds as needed
[2018-04-12] MEDS: METHYL SALICYLATE/MENTHOL OINT 30 GM TUBE TP SCH ×2 (11:07→22:30)
[2018-04-12] MEDS: ASPIRIN COATED 81 MG TABLET.EC PO SCH (11:08)
[2018-04-12] MEDS: BACITRACIN 0.9 GM PACKET TP SCH ×2 (11:08→22:01)
[2018-04-12] MEDS: SPIRONOLACTONE 25 MG TABLET (FP) PO SCH ×2 (11:08→22:02)
[2018-04-12] MEDS: TIOTROPIUM BROMIDE 2.5 MCG (SPIRIVA) RESPIMAT INHALER IH SCH (11:09)
[2018-04-12] MEDS: NICOTINE 14 MG/24 HOURS TOPICAL PATCH TD SCH (11:09)
[2018-04-12] MEDS: BUDESONIDE/FORMETEROL FUMARATE 80/4.5 mcg INHALER IH SCH ×2 (11:09→22:01)
[2018-04-12] MEDS: PRENATAL VITAMINS W/ FOLIC ACID TABLET (FP) PO SCH (11:09)
[2018-04-12] MEDS: predniSONE 20 MG TABLET (UD) PO SCH (11:09)
[2018-04-12] MEDS: chlordiazePOXIDE HCL 10 MG CAPSULE PO SCH ×3 (11:11→22:02)
[2018-04-12] MEDS: MONTELUKAST NA 10 MG TABLET PO SCH (22:01)
[2018-04-12] MEDS: THIAMINE HCL 100 MG TABLET (FP) PO SCH (22:01)
[2018-04-12] MEDS: QUEtiapine FUMARATE 50 MG TABLET PO SCH (22:02)
[2018-04-13] MEDS: AMOXICILLIN 500 MG CAPSULE (FP) PO SCH (05:37)
[2018-04-13] MEDS: GABAPENTIN 300 MG CAPSULE (FP) PO SCH (05:37)
[2018-04-13] MEDS: chlordiazePOXIDE HCL 10 MG CAPSULE PO SCH (05:38)
[2018-04-13] MEDS: CLOTRIMAZOLE 10 MG TROCHE (FP) PO SCH ×2 (05:39→11:02)
--- NOTE | 2018-04-13 09:45 | DS ---
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 recommend the patient to follow up with infectious disease specialist - Physical Exam Results Vital Signs: Vital Signs Temperature 97.9 F 04/13/18 07:40 Pulse Rate 79 04/13/18 07:40 Respiratory Rate 20 04/13/18 07:40 Blood Pressure 101/52 L 04/13/18 07:40 O2 Sat by Pulse Oximetry (%) Pertinent Admission Physical Exam Findings: alcohol withdrawal sx Laboratory Last Values WBC 3.4 K/mm3 (4.0-10.0) L 04/10/18 06:00 RBC 4.31 M/mm3 (4.00-5.60) 04/10/18 06:00 Hgb 12.0 GM/dL (11.7-16.9) 04/10/18 06:00 Hct 37.7 % (35.4-49) 04/10/18 06:00 MCV 87.6 fl (80-96) 04/10/18 06:00 MCH 27.9 pg (25.7-33.7) 04/10/18 06:00 MCHC 31.9 g/dl (32.0-35.9) L 04/10/18 06:00 RDW 16.6 % (11.9-15.9) H 04/10/18 06:00 Plt Count 203 K/MM3 (134-434) 04/10/18 06:00 MPV 8.6 fl (7.5-11.1) 04/10/18 06:00 Sodium 141 mmol/L (136-145) 04/10/18 06:00 Potassium 4.0 mmol/L (3.5-5.1) 04/10/18 06:00 Chloride 109 mmol/L (98-107) H 04/10/18 06:00 Carbon Dioxide 27 mmol/L (21-32) 04/10/18 06:00 Anion Gap 5 MMOL/L (8-16) L 04/10/18 06:00 BUN 14 mg/dL (7-18) 04/10/18 06:00 Creatinine 1.0 mg/dL (0.55-1.3) 04/10/18 06:00 Creat Clearance w eGFR > 60 (>60) 04/10/18 06:00 Random Glucose 94 mg/dL (74-106) 04/10/18 06:00 Calcium 8.4 mg/dL (8.5-10.1) L 04/10/18 06:00 Total Bilirubin 0.2 mg/dL (0.2-1) 04/10/18 06:00 AST 29 U/L (15-37) 04/10/18 06:00 ALT 33 U/L (13-61) 04/10/18 06:00 Alkaline Phosphatase 144 U/L (45-117) H 04/10/18 06:00 Total Protein 7.1 g/dl (6.4-8.2) 04/10/18 06:00 Albumin 3.2 g/dl (3.4-5.0) L 04/10/18 06:00 Urine Color Yellow 04/09/18 13:00 Urine Appearance Slcloudy 04/09/18 13:00 Urine pH 5.0 (5.0-8.0) D 04/09/18 13:00 Ur Specific [place] 1.025 (1.010-1.035) 04/09/18 13:00 Urine Protein Negative (NEGATIVE) 04/09/18 13:00 Urine Glucose (UA) Negative (NEGATIVE) 04/09/18 13:00 Urine Ketones Negative (NEGATIVE) 04/09/18 13:00 Urine Blood Negative (NEGATIVE) 04/09/18 13:00 Urine Nitrite Negative (NEGATIVE) 04/09/18 13:00 Urine Bilirubin Negative (<2.0 mg/dL) 04/09/18 13:00 Urine Urobilinogen 2.0 mg/dL (0.2-1.0) 04/09/18 13:00 Ur Leukocyte Esterase Negative (NEGATIVE) 04/09/18 13:00 RPR Titer Nonreactive (NONREACTIVE) 04/10/18 06:00 lab noted - Treatment Hospital Course: Detox Protocol Followed, Detoxed Safely, Responded well, Discharged Condition Good, Rehab Referral Accepted Patient has Accepted a Rehab Referral to: [facility] - Medication Discharge Medications: Ambulatory Orders Gabapentin [Neurontin -] 600 mg PO TID #90 capsule 04/02/14 Abacavir/Dolutegravir/Lamivudi [Triumeq 600-50-300 mg Tablet] 1 each PO DAILY Aspirin [Aspirin EC] 81 mg PO DAILY 03/12/18 Quetiapine Fumarate [Seroquel -] 50 mg PO HS 03/12/18 Albuterol Sulfate Inhaler - [Ventolin HFA Inhaler -] 2 inh PO Q4H #1 canister Amoxicillin - [Amoxicillin 500mg Capsule -] 500 mg PO TID #7 capsule 04/13/18 Spironolactone 50 mg PO BID #30 tablet 04/13/18 Tiotropium [place] [Spiriva Respimat] 1 puff IH DAILY #1 inhaler 04/13/18 predniSONE [Deltasone -] 20 mg PO DAILY #7 tablet 04/13/18 - Diagnosis (1) Alcohol dependence with uncomplicated withdrawal Status: Acute (2) Icow-js-kxhxry transgender person Status: Resolved (3) Nicotine dependence Status: Acute Qualifiers: Nicotine product type: cigarettes Substance use status: in withdrawal Qualified Code(s): F17.213 - Nicotine dependence, cigarettes, with withdrawal (4) AIDS (acquired immune deficiency syndrome) Status: Chronic (5) Asthma Status: Chronic Qualifiers: Asthma severity: mild Asthma persistence: intermittent Asthma complication type: with status asthmaticus Qualified Code(s): J45.22 - Mild intermittent asthma with status asthmaticus (6) Neuropathy Status: Chronic (7) Substance induced mood disorder Status: Suspected - AMA Did Patient Leave Against Medical Advice: No
[2018-04-13 10:02] VITALS: BP 96/53; PULSE 80; TEMP 98.8
[2018-04-13] MEDS: BUDESONIDE/FORMETEROL FUMARATE 80/4.5 mcg INHALER IH SCH (11:00)
[2018-04-13] MEDS: SPIRONOLACTONE 25 MG TABLET (FP) PO SCH (11:01)
[2018-04-13] MEDS: predniSONE 20 MG TABLET (UD) PO SCH (11:02)
[2018-04-13] MEDS: PRENATAL VITAMINS W/ FOLIC ACID TABLET (FP) PO SCH (11:02)
[2018-04-13] MEDS: METHYL SALICYLATE/MENTHOL OINT 30 GM TUBE TP SCH (11:02)
[2018-04-13] MEDS: TIOTROPIUM BROMIDE 2.5 MCG (SPIRIVA) RESPIMAT INHALER IH SCH (11:02)
[2018-04-13] MEDS: NICOTINE 14 MG/24 HOURS TOPICAL PATCH TD SCH (11:02)
[2018-04-13] MEDS: BACITRACIN 0.9 GM PACKET TP SCH (11:02)
[2018-04-13] MEDS: ASPIRIN COATED 81 MG TABLET.EC PO SCH (11:02)
== END 2018-04-13 12:44 | disposition home or self-care (01) | DRG 774 ==
LOC: YASAS 08:19 → Y6N 09:46
PROC: HZ2ZZZZ Detoxification Services for Substance Abuse Treatment (ICD-10-PCS; principal; 2018-04-09)
DX: F10.230 Alcohol dependence with withdrawal, uncomplicated (principal); F13.230 Sedative, hypnotic or anxiolytic dependence with withdrawal, uncomplicated; F14.20 Cocaine dependence, uncomplicated; F19.282 Other psychoactive substance dependence with psychoactive substance-induced sleep disorder; F19.24 Other psychoactive substance dependence with psychoactive substance-induced mood disorder; F31.9 Bipolar disorder, unspecified; F64.0 Transsexualism; F17.213 Nicotine dependence, cigarettes, with withdrawal; B20 Human immunodeficiency virus [HIV] disease; B37.0 Candidal stomatitis; B18.2 Chronic viral hepatitis C; G62.9 Polyneuropathy, unspecified; J45.22 Mild intermittent asthma with status asthmaticus; L97.509 Non-pressure chronic ulcer of other part of unspecified foot with unspecified severity; M54.5 Low back pain; G89.29 Other chronic pain; R00.0 Tachycardia, unspecified; Z85.72 Personal history of non-Hodgkin lymphomas; Z88.8 Allergy status to other drugs, medicaments and biological substances; Z91.013 Allergy to seafood
CPT/HCPCS: 36415; 80053; 81003; 85027; 86593; 94640

== ENCOUNTER 2018-07-18 14:04 | Inpatient (IN) | payer OTHER ==
[2018-07-18 15:40] VITALS: BMI 42.5
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
[2018-07-18] MEDS ORDERED: MAGNESIUM CITRATE 300 ML BOTTLE PO PRN (17:36)
[2018-07-18] MEDS ORDERED: IBUPROFEN 400 MG TABLET (FP) PO PRN (17:36)
[2018-07-18] MEDS ORDERED: MENTHOL/PHENOL 1 EACH UD MM PRN (17:36)
[2018-07-18] MEDS ORDERED: MAGNESIUM HYDROX 2400MG/30ML ORAL SUSPENSION 30 ML CUP PO PRN (17:36)
[2018-07-18] MEDS ORDERED: MELATONIN 5 MG TABLETS PO PRN (17:36)
[2018-07-18] MEDS ORDERED: guaiFENesin 200 MG/10 ML 10 ML UNIT-DOSE CUPS PO PRN (17:36)
[2018-07-18] MEDS ORDERED: BISMUTH SUBSALICYLATE 524 MG/30 ML UD PO PRN (17:36)
[2018-07-18] MEDS ORDERED: NICOTINE POLACRILEX 2 MG GUM BUC PRN (17:36)
[2018-07-18] MEDS ORDERED: ACETAMINOPHEN 325 MG TABLET (FP) PO PRN ×2 (17:36)
[2018-07-18] MEDS ORDERED: MAG HYDROX/AL HYDROX/SIMETH 30 ML UNIT-DOSE CUP PO PRN (17:36)
[2018-07-18] MEDS ORDERED: predniSONE 20 MG TABLET (UD) PO SCH (18:00)
[2018-07-18] MEDS ORDERED: chlordiazePOXIDE HCL 25 MG CAPSULE PO PRN (18:35)
[2018-07-18] MEDS ORDERED: predniSONE 20 MG TABLET (UD) PO ONE (19:00)
[2018-07-18] MEDS ORDERED: chlordiazePOXIDE HCL 25 MG CAPSULE PO ONE (19:00)
[2018-07-18] MEDS: GABAPENTIN 300 MG CAPSULE (FP) PO SCH (19:08)
[2018-07-18] MEDS: chlordiazePOXIDE HCL 25 MG CAPSULE PO SCH (22:04)
[2018-07-18] MEDS: METHOCARBAMOL 500 MG TABLET PO PRN (22:04)
[2018-07-18] MEDS: THIAMINE HCL 100 MG TABLET (FP) PO SCH (22:04)
[2018-07-18] MEDS: ALBUTEROL SO4 2.5/IPRATROPIUM 0.5 INH SOL 3 ML VIAL.NEB. NEB SCH (22:28)
[2018-07-18 23:54] LABS: EPI CELLS 3.2 /HPF (0-5/HPF); PH,URINE 6.5 (5.0-8.0); URINE APPEARANCE CLEAR; URINE BACTERIA 1.7 /hpf (NEGATIVE); URINE BILIRUBIN NEGATIVE (NEGATIVE); URINE CASTS 3 /hpf (0-8); URINE COLOR YELLOW; URINE GLUCOSE (UA) NEGATIVE (NEGATIVE); URINE KETONE NEGATIVE (NEGATIVE); URINE LEUK ESTERASE TRACE (NEGATIVE); URINE NITRITE NEGATIVE (NEGATIVE); URINE PROTEIN NEGATIVE (NEGATIVE); URINE RBC 1 /hpf (0-4); URINE WBC 2 /hpf (0-5)
[2018-07-19] MEDS: GABAPENTIN 300 MG CAPSULE (FP) PO SCH ×4 (02:04→22:59)
[2018-07-19] MEDS: chlordiazePOXIDE HCL 25 MG CAPSULE PO SCH ×4 (05:40→23:04)
[2018-07-19] MEDS: METHOCARBAMOL 500 MG TABLET PO PRN ×2 (05:41→23:00)
[2018-07-19] MEDS ORDERED: PATIENT'S OWN MEDICATION (NON-FORMULARY) (Abacavir/Dolutegravir/Lamivudi [Triumeq 600-50-3 PO SCH (10:00)
[2018-07-19] MEDS ORDERED: ASPIRIN 81 MG CHEWABLE TABLETS PO SCH (10:00)
[2018-07-19] MEDS ORDERED: NICOTINE 7 MG/24 HOURS TOPICAL PATCH TD SCH (10:00)
[2018-07-19] MEDS ORDERED: PRENATAL VITAMINS W/ FOLIC ACID TABLET (FP) PO SCH (10:00)
[2018-07-19 10:59] LABS: ALK PHOS 89 U/L (45-117); ANION GAP 5 MMOL/L (8-16); BILIRUBIN,TOTAL 0.3 mg/dL (0.2-1); BLOOD UREA NITROGEN 23 mg/dL (7-18); CALCIUM 8.4 mg/dL (8.5-10.1); CHLORIDE 104 mmol/L (98-107); CO2 29 mmol/L (21-32); CREATININE 0.9 mg/dL (0.55-1.3); GLUCOSE,RANDOM 110 mg/dL (74-106); POTASSIUM 4.1 mmol/L (3.5-5.1); SGOT/AST 28 U/L (15-37); SGPT/ALT 39 U/L (13-61); SODIUM 138 mmol/L (136-145); TOT PROT 6.9 g/dl (6.4-8.2)
[2018-07-19 11:08] LABS: HEMATOCRIT 38.6 % (35.4-49); HEMOGLOBIN 12.7 GM/dL (11.7-16.9); MCH 28.5 pg (25.7-33.7); MEAN CELL VOLUME 86.2 fl (80-96); MEAN PLT VOLUME 8.5 fl (7.5-11.1); PLATELET COUNT 199 K/MM3 (134-434); RBC 4.48 M/mm3 (4.00-5.60); RDW 15.5 % (11.9-15.9)
--- NOTE | 2018-07-19 14:36 | PN ---
[facility] CIWA - CIWA Score Nausea/Vomitin-No Nausea/No Vomiting Muscle Tremors: 3 Anxiety: 2 Agitation: 2 Paroxysmal Sweats: 4-Forehead w/Sweat Beads Orientation: 0-Oriented Tacttile Disturbances: 3-Moderate Itch/Numb/Burn Auditory Disturbances: 1-Very Mild Visual Disturbances: 2-Mild Sensitivity Headache: 0-None Present CIWA-Ar Total Score: 17 [facility] Progress Note (SOAP) Subjective: Tremors, Sweating, Stomach Cramping, Anxious. Objective: PATIENT A & O X 3, OBSERVED AMBULATING ON UNIT. IN NO ACUTE DISTRESS. PATIENT DENIES CHEST PAIN. RESULTS OF ADMISSION ECG NOTED. RIGHT BBB / BIFASCICULAR BLOCK NOTED. PATIENT REPORTS HISTORY OF RIGHT BBB AND OF AFIB AND THAT HE HAS CONSULTED [employer] [address] [employer] EATON ([place], [place]) FOR CARDIAC DISORDERS IN PAST. PATIENT ADVISED TO FOLLOW-UP WITH DR. EATON FOR FURTHER MEDICAL / CARDIAC EVALUATION AFTER DISCHARGE FROM DETOX UNIT. PATIENT VERBALIZED UNDERSTANDING OF RECOMMENDATION. Vital Signs Temperature 98.0 F 07/19/18 09:39 Pulse Rate 73 07/19/18 09:39 Respiratory Rate 18 07/19/18 09:39 Blood Pressure 121/74 07/19/18 09:39 O2 Sat by Pulse Oximetry (%) Laboratory Tests 07/18/18 07/19/18 07/19/18 17:48 07:30 07:30 WBC 3.0 L RBC 4.48 Hgb 12.7 Hct 38.6 MCV 86.2 MCH 28.5 MCHC 33.0 RDW 15.5 Plt Count 199 MPV 8.5 Sodium 138 Potassium 4.1 Chloride 104 Carbon Dioxide 29 Anion Gap 5 L BUN 23 H Creatinine 0.9 Creat Clearance w eGFR 90.06 Random Glucose 110 H Calcium 8.4 L Total Bilirubin 0.3 AST 28 ALT 39 Alkaline Phosphatase 89 Total Protein 6.9 Albumin 3.0 L Urine Color Yellow Urine Appearance Clear Urine pH 6.5 D Ur Specific [place] 1.018 Urine Protein Negative Urine Glucose (UA) Negative Urine Ketones Negative Urine Blood Negative Urine Nitrite Negative Urine Bilirubin Negative Urine Urobilinogen 1.0 Ur Leukocyte Esterase Trace Urine WBC (Auto) 2 Urine RBC (Auto) 1 Urine Casts (Auto) 3 U Epithel Cells (Auto) 3.2 Urine Bacteria (Auto) 1.7 RPR Titer 07/19/18 07:30 WBC RBC Hgb Hct MCV MCH MCHC RDW Plt Count MPV Sodium Potassium Chloride Carbon Dioxide Anion Gap BUN Creatinine Creat Clearance w eGFR Random Glucose Calcium Total Bilirubin AST ALT Alkaline Phosphatase Total Protein Albumin Urine Color Urine Appearance Urine pH Ur Specific [place] Urine Protein Urine Glucose (UA) Urine Ketones Urine Blood Urine Nitrite Urine Bilirubin Urine Urobilinogen Ur Leukocyte Esterase Urine WBC (Auto) Urine RBC (Auto) Urine Casts (Auto) U Epithel Cells (Auto) Urine Bacteria (Auto) RPR Titer Nonreactive LABS NOTED. PATIENT HAS HAD LOW WBC LEVELS ON PREVIOUS ADMISSIONS. 07/19/18 14:36 Assessment: 07/19/18 14:35 WITHDRAWAL SYMPTOMS. LEUKOPENIA. 07/19/18 14:39 Plan: CONTINUE DETOX.
[2018-07-19] MEDS: ALBUTEROL SO4 2.5/IPRATROPIUM 0.5 INH SOL 3 ML VIAL.NEB. NEB SCH ×3 (15:52→23:03)
[2018-07-19] MEDS ORDERED: predniSONE 20 MG TABLET (UD) PO ONE (18:00)
[2018-07-19] MEDS ORDERED: predniSONE 20 MG TABLET (UD) PO SCH (18:00)
--- NOTE | 2018-07-19 19:12 | PN ---
S Progress Note Note: patient complaint of sob,expiratory wheezing on albuterol nebulizer,oxygen by nasal canula 2 lit/min did not want to be on oxygen any more on prednisone taper pulse oximeter 100% lung mild wheezing also has hiv stated feel better refused to go to er for evaluation and treatment signed refusal of treatment impression acute exacerbation of asthma treatment close monitoring albuterol inhaler prn q 4 hrs albuterol nebulizer q 6 hrs continue prednisone
[2018-07-19] MEDS: THIAMINE HCL 100 MG TABLET (FP) PO SCH (22:58)
[2018-07-20] MEDS: GABAPENTIN 300 MG CAPSULE (FP) PO SCH (05:32)
[2018-07-20] MEDS: chlordiazePOXIDE HCL 25 MG CAPSULE PO SCH (05:32)
[2018-07-20 09:39] VITALS: BP 120/75; PULSE 77; TEMP 97.8
--- NOTE | 2018-07-20 14:42 | DS ---
[facility] Detox Discharge Summary Admission Date: 07/18/18 Discharge Date: 07/20/18 - History Present History: Alcohol Dependence, Sedative Dependence Additional Comments: 47 years old male admitted on 07/18/18 for alcohol and benzo withdrawal stabilization insists to leave the detox unit without apparent reason strong recommend that benzo related respiratory suppressant effect Pertinent Past History: bring in medication list and lab results to aftercare program - Physical Exam Results Vital Signs: Vital Signs Temperature 97.8 F 07/20/18 09:38 Pulse Rate 77 07/20/18 09:38 Respiratory Rate 18 07/20/18 09:38 Blood Pressure 120/75 07/20/18 09:38 O2 Sat by Pulse Oximetry (%) Pertinent Admission Physical Exam Findings: alcohol and benzo withdrawal sx Laboratory Last Values WBC 3.0 K/mm3 (4.0-10.0) L 07/19/18 07:30 RBC 4.48 M/mm3 (4.00-5.60) 07/19/18 07:30 Hgb 12.7 GM/dL (11.7-16.9) 07/19/18 07:30 Hct 38.6 % (35.4-49) 07/19/18 07:30 MCV 86.2 fl (80-96) 07/19/18 07:30 MCH 28.5 pg (25.7-33.7) 07/19/18 07:30 MCHC 33.0 g/dl (32.0-35.9) 07/19/18 07:30 RDW 15.5 % (11.9-15.9) 07/19/18 07:30 Plt Count 199 K/MM3 (134-434) 07/19/18 07:30 MPV 8.5 fl (7.5-11.1) 07/19/18 07:30 Sodium 138 mmol/L (136-145) 07/19/18 07:30 Potassium 4.1 mmol/L (3.5-5.1) 07/19/18 07:30 Chloride 104 mmol/L (98-107) 07/19/18 07:30 Carbon Dioxide 29 mmol/L (21-32) 07/19/18 07:30 Anion Gap 5 MMOL/L (8-16) L 07/19/18 07:30 BUN 23 mg/dL (7-18) H 07/19/18 07:30 Creatinine 0.9 mg/dL (0.55-1.3) 07/19/18 07:30 Creat Clearance w eGFR 90.06 (>60) 07/19/18 07:30 Random Glucose 110 mg/dL (74-106) H 07/19/18 07:30 Calcium 8.4 mg/dL (8.5-10.1) L 07/19/18 07:30 Total Bilirubin 0.3 mg/dL (0.2-1) 07/19/18 07:30 AST 28 U/L (15-37) 07/19/18 07:30 ALT 39 U/L (13-61) 07/19/18 07:30 Alkaline Phosphatase 89 U/L (45-117) 07/19/18 07:30 Total Protein 6.9 g/dl (6.4-8.2) 07/19/18 07:30 Albumin 3.0 g/dl (3.4-5.0) L 07/19/18 07:30 Urine Color Yellow 07/18/18 17:48 Urine Appearance Clear 07/18/18 17:48 Urine pH 6.5 (5.0-8.0) D 07/18/18 17:48 Ur Specific [place] 1.018 (1.010-1.035) 07/18/18 17:48 Urine Protein Negative (NEGATIVE) 07/18/18 17:48 Urine Glucose (UA) Negative (NEGATIVE) 07/18/18 17:48 Urine Ketones Negative (NEGATIVE) 07/18/18 17:48 Urine Blood Negative (NEGATIVE) 07/18/18 17:48 Urine Nitrite Negative (NEGATIVE) 07/18/18 17:48 Urine Bilirubin Negative (NEGATIVE) 07/18/18 17:48 Urine Urobilinogen 1.0 mg/dL (0.2-1.0) 07/18/18 17:48 Ur Leukocyte Esterase Trace (NEGATIVE) 07/18/18 17:48 Urine WBC (Auto) 2 /hpf (0-5) 07/18/18 17:48 Urine RBC (Auto) 1 /hpf (0-4) 07/18/18 17:48 Urine Casts (Auto) 3 /hpf (0-8) 07/18/18 17:48 U Epithel Cells (Auto) 3.2 /HPF (0-5/HPF) 07/18/18 17:48 Urine Bacteria (Auto) 1.7 /hpf (NEGATIVE) 07/18/18 17:48 RPR Titer Nonreactive (NONREACTIVE) 07/19/18 07:30 lab noted - Treatment Hospital Course: Detox Protocol Followed, Detoxed Safely, Responded well, Discharged Condition Good, Rehab Referral Accepted Patient has Accepted a Rehab Referral to: as per counselor arrangement - Medication Discharge Medications: Ambulatory Orders Abacavir/Dolutegravir/Lamivudi [Triumeq 600-50-300 mg Tablet] 1 each PO DAILY Albuterol Sulfate Inhaler - [Ventolin HFA Inhaler -] 2 inh PO Q4H #1 canister Aspirin [ASA -] 81 mg PO DAILY 07/18/18 Gabapentin [Neurontin -] 300 mg PO Q8H 07/18/18 Prednisone [Deltasone] 20 mg PO DAILY 07/18/18 - Diagnosis (1) Alcohol dependence with uncomplicated withdrawal Status: Acute (2) Asthma Status: Chronic Qualifiers: Asthma severity: unspecified severity Asthma persistence: intermittent Asthma complication type: with acute exacerbation Qualified Code(s): J45.21 - Mild intermittent asthma with (acute) exacerbation (3) Sedative, hypnotic or anxiolytic dependence with withdrawal, uncomplicated Status: Acute (4) AIDS (acquired immune deficiency syndrome) Status: Chronic (5) Drug-induced mood disorder Status: Suspected (6) HIV (human immunodeficiency virus infection) Status: Chronic Qualifiers: HIV symptom status: unspecified Qualified Code(s): B20 - Human immunodeficiency virus [HIV] disease (7) Nicotine dependence Status: Acute Qualifiers: Nicotine product type: cigarettes Substance use status: in withdrawal Qualified Code(s): F17.213 - Nicotine dependence, cigarettes, with withdrawal (8) Substance induced mood disorder Status: Suspected - AMA Did Patient Leave Against Medical Advice: No
[2018-07-20] MEDS ORDERED: predniSONE 20 MG TABLET (UD) PO ONE (18:00)
[2018-07-20] MEDS ORDERED: chlordiazePOXIDE HCL 10 MG CAPSULE PO SCH (23:00)
[2018-07-20] MEDS ORDERED: chlordiazePOXIDE HCL 10 MG CAPSULE PO PRN (23:00)
--- NOTE | 2018-07-21 10:40 | EKG ---
Test Reason : Blood Pressure : / mmHG Vent. Rate : 067 BPM Atrial Rate : 067 BPM P-R Int : 140 ms QRS Dur : 144 ms QT Int : 454 ms P-R-T Axes : 051 -49 024 degrees QTc Int : 479 ms NORMAL SINUS RHYTHM RIGHT BUNDLE BRANCH BLOCK LEFT ANTERIOR FASCICULAR BLOCK BIFASCICULAR BLOCK ABNORMAL ECG WHEN COMPARED WITH ECG OF 19-SEP-2009 01:46, NO SIGNIFICANT CHANGE WAS FOUND Confirmed by GIANNA RIVERS MD ([id number]) on 07/21/2018 10:40:11 AM Referred By: KAITLIN PARIS NP Confirmed By:GIANNA RIVERS MD
[2018-07-21] MEDS ORDERED: predniSONE 10 MG TABLET (UD) PO ONE (18:00)
[2018-07-21] MEDS ORDERED: chlordiazePOXIDE HCL 10 MG CAPSULE PO SCH (23:00)
[2018-07-22] MEDS ORDERED: predniSONE 20 MG TABLET (UD) PO ONE (18:00)
[2018-07-23] MEDS ORDERED: predniSONE 10 MG TABLET (UD) PO ONE (18:00)
== END 2018-07-20 09:45 | disposition left against medical advice (07) | DRG 770 ==
LOC: YASAS 14:04 → Y3N 17:48
PROVIDERS: ADMIT Surgery; ATTEND Surgery
PROC: HZ2ZZZZ Detoxification Services for Substance Abuse Treatment (ICD-10-PCS; principal; 2018-07-18)
DX: F10.230 Alcohol dependence with withdrawal, uncomplicated (principal); F13.230 Sedative, hypnotic or anxiolytic dependence with withdrawal, uncomplicated; F14.20 Cocaine dependence, uncomplicated; F19.24 Other psychoactive substance dependence with psychoactive substance-induced mood disorder; F31.9 Bipolar disorder, unspecified; B20 Human immunodeficiency virus [HIV] disease; J45.21 Mild intermittent asthma with (acute) exacerbation; D72.819 Decreased white blood cell count, unspecified; I83.93 Asymptomatic varicose veins of bilateral lower extremities; M54.5 Low back pain; G89.29 Other chronic pain; F64.1 Dual role transvestism; Z85.72 Personal history of non-Hodgkin lymphomas; Z88.2 Allergy status to sulfonamides; Z91.013 Allergy to seafood; Z88.3 Allergy status to other anti-infective agents
CPT/HCPCS: 36415; 80053; 81003; 85027; 86593; 93005; 93010; 94640

== ENCOUNTER 2018-10-28 13:57 | Inpatient (IN) | payer OTHER ==
[2018-10-28 16:58] VITALS: BMI 42.7
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
--- NOTE | 2018-10-28 19:54 | PN ---
Teaching Attending Note Name of Resident: Tesha Glover ATTENDING PHYSICIAN STATEMENT I saw and evaluated the patient. I reviewed the resident's note and discussed the case with the resident. I agree with the resident's findings and plan as documented. SUBJECTIVE: pt here requesting detox form etoh use , reports 12-pk of 16 ox beer and 1 pint liquor , starts drinking in the mornings , reports tremors if not drinking , denies seizures or blackouts , multiple prior admissions at this facility most recently 07/2018 . TG . Latets use today , current symptoms as above . cocaine : 150 $ / day via inhalation xanax : every other day 2 mg x 2 tobacco : 1/2 ppd. PMHx : HIV neuropathy , asthma ( dx 5 years ago , intubated x 2 most recently 1 yr ago ) , HIV ( dx 2002 RF = injected by SO , ID clinic [facility] ) reports regular attendance , undetectable. Psych : depression , anxiety , denies SI / HI PSHx :denies OBJECTIVE: CIWA 13 CV : rrr s1 s2 resp : decreased BS , scattered wheezing . ASSESSMENT AND PLAN: ETOH abuse / dependence - Librium taper per protocol Problem List - Problems (1) Alcohol use disorder Code(s): DOO3303 - (2) Benzodiazepine abuse Code(s): F13.10 - SEDATIVE, HYPNOTIC OR ANXIOLYTIC ABUSE, UNCOMPLICATED (3) Cocaine use disorder Code(s): F14.10 - COCAINE ABUSE, UNCOMPLICATED (4) Alcohol dependence with uncomplicated withdrawal Code(s): F10.230 - ALCOHOL DEPENDENCE WITH WITHDRAWAL, UNCOMPLICATED (5) Nicotine dependence Code(s): F17.200 - NICOTINE DEPENDENCE, UNSPECIFIED, UNCOMPLICATED Qualifiers: Nicotine product type: cigarettes Substance use status: in withdrawal Qualified Code(s): F17.213 - Nicotine dependence, cigarettes, with withdrawal
[2018-10-28] MEDS ORDERED: MAGNESIUM CITRATE 300 ML BOTTLE PO PRN (19:57)
[2018-10-28] MEDS ORDERED: chlordiazePOXIDE HCL 25 MG CAPSULE PO PRN (19:57)
[2018-10-28] MEDS ORDERED: hydrOXYzine PAMOATE 25 MG CAPSULE (FP) PO PRN (19:57)
[2018-10-28] MEDS ORDERED: MAG HYDROX/AL HYDROX/SIMETH 30 ML UNIT-DOSE CUP PO PRN (19:57)
[2018-10-28] MEDS ORDERED: ACETAMINOPHEN 325 MG TABLET (FP) PO PRN ×2 (19:57)
[2018-10-28] MEDS ORDERED: NICOTINE POLACRILEX 2 MG GUM BUC PRN (19:57)
[2018-10-28] MEDS ORDERED: MELATONIN 5 MG TABLETS PO PRN (19:57)
[2018-10-28] MEDS ORDERED: IBUPROFEN 400 MG TABLET (FP) PO PRN (19:57)
[2018-10-28] MEDS ORDERED: MAGNESIUM HYDROX 2400MG/30ML ORAL SUSPENSION 30 ML CUP PO PRN (19:57)
[2018-10-28] MEDS ORDERED: BISMUTH SUBSALICYLATE 524 MG/30 ML UD PO PRN (19:57)
[2018-10-28] MEDS ORDERED: MENTHOL/PHENOL 1 EACH UD MM PRN (19:57)
[2018-10-28] MEDS ORDERED: ALBUTEROL SO4 0.083% IH SOL 2.5 MG/3 ML VIAL.NEB. NEB PRN (19:59)
[2018-10-28] MEDS: GABAPENTIN 300 MG CAPSULE (FP) PO SCH (21:14)
[2018-10-28] MEDS: THIAMINE HCL 100 MG TABLET (FP) PO SCH (21:14)
[2018-10-28] MEDS: ALBUTEROL SO4 8 GM HFA INHALER IH SCH (21:16)
[2018-10-28] MEDS: chlordiazePOXIDE HCL 25 MG CAPSULE PO SCH (23:20)
[2018-10-29] MEDS: ALBUTEROL SO4 8 GM HFA INHALER IH SCH ×6 (04:08→21:24)
[2018-10-29] MEDS: GABAPENTIN 300 MG CAPSULE (FP) PO SCH ×3 (07:17→21:24)
[2018-10-29] MEDS: chlordiazePOXIDE HCL 25 MG CAPSULE PO SCH ×4 (07:18→22:00)
--- NOTE | 2018-10-29 09:25 | PN ---
S CIWA - CIWA Score Nausea/Vomitin-No Nausea/No Vomiting Muscle Tremors: 3 Anxiety: 3 Agitation: 3 Paroxysmal Sweats: 3 Orientation: 0-Oriented Tacttile Disturbances: 0-None Auditory Disturbances: 0-None Visual Disturbances: 0-None Headache: 0-None Present CIWA-Ar Total Score: 12 [facility] Progress Note (SOAP) Subjective: gas sweats anxiety interrupted sleep body aches restless Objective: 10/29/18 09:22 Vital Signs Temperature 98.2 F 10/29/18 09:22 Pulse Rate 71 10/29/18 09:22 Respiratory Rate 18 10/29/18 09:22 Blood Pressure 109/69 10/29/18 09:22 O2 Sat by Pulse Oximetry (%) Laboratory Tests 10/29/18 10/29/18 07:00 07:00 WBC 3.6 L RBC 4.61 Hgb 13.5 Hct 39.6 MCV 85.8 MCH 29.4 MCHC 34.2 RDW 15.6 Plt Count 208 MPV 8.1 Sodium 141 Potassium 4.4 Chloride 108 H Carbon Dioxide 28 Anion Gap 5 L BUN 20.1 H Creatinine 0.9 Est GFR (CKD-EPI)AfAm 115.83 Est GFR (CKD-EPI)NonAf 99.94 Random Glucose 102 Calcium 8.6 Total Bilirubin 0.5 AST 36 ALT 45 Alkaline Phosphatase 93 Total Protein 6.4 Albumin 3.0 L labs noted aaox3 ambulating no acute distress Assessment: 10/29/18 09:24 withdrawal sx Plan: continue detox increase fluids gas x ordered
[2018-10-29] MEDS: PRENATAL VITAMINS W/ FOLIC ACID TABLET (FP) PO SCH (10:14)
[2018-10-29] MEDS: ASPIRIN 81 MG CHEWABLE TABLETS PO SCH (10:14)
[2018-10-29] MEDS: ABACAVIR/DOLUTEGRAVIR/LAMIVUDI (TRIUMEQ) TABLET -NF PO SCH (10:45)
[2018-10-29 12:09] LABS: HEMATOCRIT 39.6 % (35.4-49); HEMOGLOBIN 13.5 GM/dL (11.7-16.9); MCH 29.4 pg (25.7-33.7); MCHC 34.2 g/dl (32.0-35.9); MEAN CELL VOLUME 85.8 fl (80-96); MEAN PLT VOLUME 8.1 fl (7.5-11.1); PLATELET COUNT 208 K/MM3 (134-434); RBC 4.61 M/mm3 (4.00-5.60); RDW 15.6 % (11.9-15.9); WHITE BLOOD COUNT 3.6 K/mm3 (4.0-10.0)
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
[2018-10-29 12:34] LABS: BILIRUBIN,TOTAL 0.5 mg/dL (0.2-1); BLOOD UREA NITROGEN 20.1 mg/dL (7-18); CALCIUM 8.6 mg/dL (8.5-10.1); CREATININE 0.9 mg/dL (0.55-1.3); POTASSIUM 4.4 mmol/L (3.5-5.1); TOT PROT 6.4 g/dl (6.4-8.2)
[2018-10-29] MEDS ORDERED: SIMETHICONE 80 MG TAB.CHEW (FP) PO PRN (12:41)
[2018-10-29] MEDS: THIAMINE HCL 100 MG TABLET (FP) PO SCH (22:01)
[2018-10-30] MEDS: ALBUTEROL SO4 8 GM HFA INHALER IH SCH ×6 (01:57→22:28)
[2018-10-30] MEDS: GABAPENTIN 300 MG CAPSULE (FP) PO SCH ×3 (06:43→22:11)
[2018-10-30] MEDS: chlordiazePOXIDE HCL 25 MG CAPSULE PO SCH ×4 (06:51→22:11)
[2018-10-30] MEDS: ABACAVIR/DOLUTEGRAVIR/LAMIVUDI (TRIUMEQ) TABLET -NF PO SCH (10:42)
[2018-10-30] MEDS: ASPIRIN 81 MG CHEWABLE TABLETS PO SCH (10:42)
[2018-10-30] MEDS: PRENATAL VITAMINS W/ FOLIC ACID TABLET (FP) PO SCH (10:42)
--- NOTE | 2018-10-30 11:49 | PN ---
S CIWA - CIWA Score Nausea/Vomitin-No Nausea/No Vomiting Muscle Tremors: None Anxiety: 1-Mildly Anxious Agitation: 2 Paroxysmal Sweats: No Perspiration Orientation: 0-Oriented Tacttile Disturbances: 0-None Auditory Disturbances: 0-None Visual Disturbances: 0-None Headache: 0-None Present CIWA-Ar Total Score: 3 [facility] Progress Note (SOAP) Subjective: anxiety Objective: 10/30/18 11:46 Vital Signs Temperature 97.3 F L 10/30/18 06:50 Pulse Rate 74 10/30/18 06:50 Respiratory Rate 18 10/30/18 06:50 Blood Pressure 104/81 10/30/18 06:50 O2 Sat by Pulse Oximetry (%) Laboratory Tests 10/29/18 10/29/18 10/29/18 07:00 07:00 07:00 WBC 3.6 L RBC 4.61 Hgb 13.5 Hct 39.6 MCV 85.8 MCH 29.4 MCHC 34.2 RDW 15.6 Plt Count 208 MPV 8.1 Sodium 141 Potassium 4.4 Chloride 108 H Carbon Dioxide 28 Anion Gap 5 L BUN 20.1 H Creatinine 0.9 Est GFR (CKD-EPI)AfAm 115.83 Est GFR (CKD-EPI)NonAf 99.94 Random Glucose 102 Calcium 8.6 Total Bilirubin 0.5 AST 36 ALT 45 Alkaline Phosphatase 93 Total Protein 6.4 Albumin 3.0 L RPR Titer Nonreactive aaox3 ambulating no acute distress Assessment: 10/30/18 11:48 withdrawal sx Plan: continue detox increase fluids d/c in am
--- NOTE | 2018-10-30 13:59 | PN ---
[facility] Progress Note Note: pt was admitted in withdrawals pt c/o of withdrawals s/s and aggressive symptomatic management attempted however in spite of extensive motivational counseling regarding the risk of relapse, seizures, DT's, OD and or loss. pt chose to sign out AMA.
[2018-10-30 21:47] VITALS: BP 104/67; TEMP 98.1
[2018-10-30] MEDS: THIAMINE HCL 100 MG TABLET (FP) PO SCH (22:11)
[2018-10-31] MEDS ORDERED: chlordiazePOXIDE HCL 10 MG CAPSULE PO PRN
[2018-10-31] MEDS: ALBUTEROL SO4 8 GM HFA INHALER IH SCH ×4 (01:26→12:33)
[2018-10-31 03:49] VITALS: PULSE 78
[2018-10-31] MEDS ORDERED: GABAPENTIN 300 MG CAPSULE (FP) PO SCH (06:00)
[2018-10-31] MEDS: chlordiazePOXIDE HCL 10 MG CAPSULE PO SCH ×2 (06:37→10:12)
[2018-10-31] MEDS: PRENATAL VITAMINS W/ FOLIC ACID TABLET (FP) PO SCH (09:32)
[2018-10-31] MEDS: ABACAVIR/DOLUTEGRAVIR/LAMIVUDI (TRIUMEQ) TABLET -NF PO SCH (09:32)
[2018-10-31] MEDS: ASPIRIN 81 MG CHEWABLE TABLETS PO SCH (09:32)
--- NOTE | 2018-10-31 18:40 | DS ---
[facility] Detox Discharge Summary Admission Date: 10/28/18 Discharge Date: 10/31/18 - History Present History: Alcohol Dependence, Cocaine Dependence, Sedative Dependence Additional Comments: PATIENT DID NOT WISH TO REMAIN TO COMPLETE DETOX REGIMEN. PATIENT REFUSED TO SPEAK WITH EXTRACTIONS TECHNOLOGIST PRIOR TO LEAVING DETOX UNIT AGAINST MEDICAL ADVICE. PATIENT WALKED OFF OF DETOX UNIT WITHOUT ESCORT AND PRIOR TO COMPLETION OF AGAINST MEDICAL ADVICE DISCHARGE PAPERWORK. Pertinent Past History: Leukopenia, Asthma, H.I.V., History Of Neuropathy of Lower Extremities, History Of Non-Hodgkin's Lymphoma, Hep C, Major Depressive Disorder, Bipolar Disorder, Nicotine Dependence, History Of Chronic Lower Back Pain. - Physical Exam Results Vital Signs: Vital Signs Temperature 98.1 F 10/30/18 21:45 Pulse Rate 78 10/31/18 03:30 Respiratory Rate 18 10/31/18 03:30 Blood Pressure 104/67 10/30/18 21:45 O2 Sat by Pulse Oximetry (%) Pertinent Admission Physical Exam Findings: WITHDRAWAL SYMPTOMS. Laboratory Tests 10/29/18 10/29/18 10/29/18 07:00 07:00 07:00 WBC 3.6 L RBC 4.61 Hgb 13.5 Hct 39.6 MCV 85.8 MCH 29.4 MCHC 34.2 RDW 15.6 Plt Count 208 MPV 8.1 Sodium 141 Potassium 4.4 Chloride 108 H Carbon Dioxide 28 Anion Gap 5 L BUN 20.1 H Creatinine 0.9 Est GFR (CKD-EPI)AfAm 115.83 Est GFR (CKD-EPI)NonAf 99.94 Random Glucose 102 Calcium 8.6 Total Bilirubin 0.5 AST 36 ALT 45 Alkaline Phosphatase 93 Total Protein 6.4 Albumin 3.0 L RPR Titer Nonreactive LABS NOTED. - Diagnosis (1) Alcohol dependence with uncomplicated withdrawal Status: Acute (2) Cocaine use disorder Status: Acute (3) Sedative, hypnotic or anxiolytic dependence, uncomplicated Status: Acute (4) Substance-induced anxiety disorder Status: Acute (5) AIDS (acquired immune deficiency syndrome) Status: Chronic (6) Asthma Status: Chronic Qualifiers: Asthma severity: unspecified severity Asthma persistence: intermittent Asthma complication type: with acute exacerbation Qualified Code(s): J45.21 - Mild intermittent asthma with (acute) exacerbation (7) Chronic low back pain Status: Chronic Qualifiers: Back pain laterality: bilateral Sciatica presence: unspecified whether sciatica present Qualified Code(s): M54.5 - Low back pain; G89.29 - Other chronic pain (8) HIV (human immunodeficiency virus infection) Status: Chronic Qualifiers: HIV symptom status: unspecified Qualified Code(s): B20 - Human immunodeficiency virus [HIV] disease (9) MDD (major depressive disorder) Status: Chronic Qualifiers: Major depression recurrence: unspecified whether recurrent Active/ Remission status: remission status unspecified Qualified Code(s): F32.9 - Major depressive disorder, single episode, unspecified (10) Neuropathy Status: Chronic (11) Nicotine dependence Status: Chronic Qualifiers: Nicotine product type: cigarettes Substance use status: in withdrawal Qualified Code(s): F17.213 - Nicotine dependence, cigarettes, with withdrawal - AMA Did Patient Leave Against Medical Advice: Yes (PATIENT DID NOT WISH TO REMAIN TO COMPLETE DETOX REGIMEN.)
[2018-11-01] MEDS ORDERED: chlordiazePOXIDE HCL 10 MG CAPSULE PO SCH (05:00)
[2018-11-02] MEDS ORDERED: chlordiazePOXIDE HCL 10 MG CAPSULE PO ONE (05:00)
== END 2018-10-31 09:06 | disposition left against medical advice (07) | DRG 770 ==
LOC: YASAS 13:57 → Y6N 19:45 → Y3N 10-30 22:48
PROVIDERS: ADMIT Surgery; ATTEND Surgery
PROC: HZ2ZZZZ Detoxification Services for Substance Abuse Treatment (ICD-10-PCS; principal; 2018-10-28)
DX: F10.230 Alcohol dependence with withdrawal, uncomplicated (principal); F13.20 Sedative, hypnotic or anxiolytic dependence, uncomplicated; F14.20 Cocaine dependence, uncomplicated; F17.210 Nicotine dependence, cigarettes, uncomplicated; F33.9 Major depressive disorder, recurrent, unspecified; F31.9 Bipolar disorder, unspecified; F19.282 Other psychoactive substance dependence with psychoactive substance-induced sleep disorder; B20 Human immunodeficiency virus [HIV] disease; G62.9 Polyneuropathy, unspecified; J45.21 Mild intermittent asthma with (acute) exacerbation; M54.5 Low back pain; G89.29 Other chronic pain; B18.2 Chronic viral hepatitis C; Z85.72 Personal history of non-Hodgkin lymphomas
CPT/HCPCS: 36415; 80053; 85027; 86593

== ENCOUNTER 2019-01-27 17:48 | Inpatient (IN) | payer OTHER ==
[2019-01-27 19:11] VITALS: BMI 41.4
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
[2019-01-27] MEDS ORDERED: MAGNESIUM HYDROX 2400MG/30ML ORAL SUSPENSION 30 ML CUP PO PRN (21:24)
[2019-01-27] MEDS ORDERED: ACETAMINOPHEN 325 MG TABLET (FP) PO PRN ×2 (21:24)
[2019-01-27] MEDS ORDERED: IBUPROFEN 400 MG TABLET (FP) PO PRN (21:24)
[2019-01-27] MEDS ORDERED: MAGNESIUM CITRATE 300 ML BOTTLE PO PRN (21:24)
[2019-01-27] MEDS ORDERED: BISMUTH SUBSALICYLATE 524 MG/30 ML UD PO PRN (21:24)
[2019-01-27] MEDS ORDERED: MELATONIN 5 MG TABLETS PO PRN (21:24)
[2019-01-27] MEDS ORDERED: hydrOXYzine PAMOATE 25 MG CAPSULE (FP) PO PRN (21:24)
[2019-01-27] MEDS ORDERED: MAG HYDROX/AL HYDROX/SIMETH 30 ML UNIT-DOSE CUP PO PRN (21:24)
[2019-01-27] MEDS ORDERED: MENTHOL/PHENOL 1 EACH UD MM PRN (21:24)
[2019-01-27] MEDS ORDERED: chlordiazePOXIDE HCL 25 MG CAPSULE PO PRN (21:24)
[2019-01-27] MEDS ORDERED: NICOTINE POLACRILEX 2 MG GUM BC PRN (21:28)
[2019-01-27] MEDS ORDERED: ALBUTEROL SO4 8 GM HFA INHALER IH PRN (21:30)
[2019-01-27] MEDS: THIAMINE HCL 100 MG TABLET (FP) PO SCH (22:43)
[2019-01-27] MEDS: METHOCARBAMOL 500 MG TABLET PO PRN (22:43)
[2019-01-27] MEDS: chlordiazePOXIDE HCL 25 MG CAPSULE PO SCH (22:43)
[2019-01-28] MEDS: chlordiazePOXIDE HCL 25 MG CAPSULE PO SCH ×4 (07:08→23:05)
--- NOTE | 2019-01-28 09:43 | EKG ---
Test Reason : Blood Pressure : / mmHG Vent. Rate : 077 BPM Atrial Rate : 077 BPM P-R Int : 122 ms QRS Dur : 136 ms QT Int : 402 ms P-R-T Axes : 040 -50 -14 degrees QTc Int : 454 ms NORMAL SINUS RHYTHM LEFT AXIS DEVIATION RIGHT BUNDLE BRANCH BLOCK ABNORMAL ECG WHEN COMPARED WITH ECG OF 19-JUL-2018 06:41, NO SIGNIFICANT CHANGE WAS FOUND Confirmed by NEELA HAMMOND, ESTEPHANIA ([id number]) on 01/28/2019 9:43:47 AM Referred By: Confirmed By:ESTEPHANIA KEITA MD
[2019-01-28 09:50] LABS: HEMATOCRIT 39.1 % (35.4-49); HEMOGLOBIN 12.7 GM/dL (11.7-16.9); MCH 28.3 pg (25.7-33.7); MCHC 32.6 g/dl (32.0-35.9); MEAN CELL VOLUME 86.8 fl (80-96); MEAN PLT VOLUME 8.5 fl (7.5-11.1); PLATELET COUNT 194 K/MM3 (134-434); RBC 4.51 M/mm3 (4.00-5.60); RDW 16.5 % (11.9-15.9); WHITE BLOOD COUNT 3.2 K/mm3 (4.0-10.0)
[2019-01-28 10:31] LABS: ALBUMIN 2.8 g/dl (3.4-5.0); BILIRUBIN,TOTAL 0.3 mg/dL (0.2-1); BLOOD UREA NITROGEN 15.3 mg/dL (7-18); CALCIUM 8.4 mg/dL (8.5-10.1); CREATININE 0.8 mg/dL (0.55-1.3); POTASSIUM 3.7 mmol/L (3.5-5.1); TOT PROT 5.8 g/dl (6.4-8.2)
[2019-01-28] MEDS: NICOTINE 14 MG/24 HOURS TOPICAL PATCH TD SCH (10:32)
[2019-01-28] MEDS: PRENATAL VITAMINS W/ FOLIC ACID TABLET (FP) PO SCH (10:32)
--- NOTE | 2019-01-28 12:17 | PN ---
S CIWA - CIWA Score Nausea/Vomitin-No Nausea/No Vomiting Muscle Tremors: 3 Anxiety: 2 Agitation: 3 Paroxysmal Sweats: 3 Orientation: 0-Oriented Tacttile Disturbances: 0-None Auditory Disturbances: 0-None Visual Disturbances: 0-None Headache: 0-None Present CIWA-Ar Total Score: 11 S Progress Note (SOAP) Subjective: sweats shakes interrupted sleep body aches agitation Objective: 01/28/19 12:16 Vital Signs Temperature 98.4 F 01/28/19 09:28 Pulse Rate 72 01/28/19 09:28 Respiratory Rate 20 01/28/19 09:28 Blood Pressure 122/68 01/28/19 09:28 O2 Sat by Pulse Oximetry (%) Laboratory Tests 01/28/19 01/28/19 01/28/19 08:15 08:15 08:15 WBC 3.2 L RBC 4.51 Hgb 12.7 Hct 39.1 MCV 86.8 MCH 28.3 MCHC 32.6 RDW 16.5 H Plt Count 194 MPV 8.5 Sodium 143 Potassium 3.7 Chloride 107 Carbon Dioxide 29 Anion Gap 7 L BUN 15.3 Creatinine 0.8 Est GFR (CKD-EPI)AfAm 121.57 Est GFR (CKD-EPI)NonAf 104.89 Random Glucose 93 Calcium 8.4 L Total Bilirubin 0.3 AST 24 ALT 42 Alkaline Phosphatase 80 Total Protein 5.8 L Albumin 2.8 L RPR Titer Nonreactive labs noted aaox3 ambulating no acute distress Assessment: 01/28/19 12:16 withdrawals Plan: continue detox increase fluids
[2019-01-28] MEDS: RIVAROXABAN 20 MG TABLET PO SCH (18:59)
[2019-01-28] MEDS: THIAMINE HCL 100 MG TABLET (FP) PO SCH (23:05)
[2019-01-29] MEDS: chlordiazePOXIDE HCL 25 MG CAPSULE PO SCH ×4 (06:56→22:46)
[2019-01-29] MEDS: PRENATAL VITAMINS W/ FOLIC ACID TABLET (FP) PO SCH (10:49)
[2019-01-29] MEDS: NICOTINE 14 MG/24 HOURS TOPICAL PATCH TD SCH (10:49)
[2019-01-29] MEDS: METHOCARBAMOL 500 MG TABLET PO PRN ×2 (10:58→22:53)
--- NOTE | 2019-01-29 13:22 | PN ---
[facility] CIWA - CIWA Score Nausea/Vomitin-No Nausea/No Vomiting Muscle Tremors: 2 Anxiety: 1-Mildly Anxious Agitation: 2 Paroxysmal Sweats: 2 Orientation: 0-Oriented Tacttile Disturbances: 0-None Auditory Disturbances: 0-None Visual Disturbances: 0-None Headache: 0-None Present CIWA-Ar Total Score: 7 [facility] Progress Note (SOAP) Subjective: anxiety sweats interrupted sleep Objective: 01/29/19 13:21 Vital Signs Temperature 97.1 F L 01/29/19 13:00 Pulse Rate 73 01/29/19 13:00 Respiratory Rate 17 01/29/19 13:00 Blood Pressure 119/67 01/29/19 13:00 O2 Sat by Pulse Oximetry (%) Laboratory Tests 01/28/19 01/28/19 01/28/19 08:15 08:15 08:15 WBC 3.2 L RBC 4.51 Hgb 12.7 Hct 39.1 MCV 86.8 MCH 28.3 MCHC 32.6 RDW 16.5 H Plt Count 194 MPV 8.5 Sodium 143 Potassium 3.7 Chloride 107 Carbon Dioxide 29 Anion Gap 7 L BUN 15.3 Creatinine 0.8 Est GFR (CKD-EPI)AfAm 121.57 Est GFR (CKD-EPI)NonAf 104.89 Random Glucose 93 Calcium 8.4 L Total Bilirubin 0.3 AST 24 ALT 42 Alkaline Phosphatase 80 Total Protein 5.8 L Albumin 2.8 L RPR Titer Nonreactive labs noted aaox3 ambulating no acute distress Assessment: 01/29/19 13:22 mild withdrawals Plan: continue detox increase fluids
[2019-01-29] MEDS: RIVAROXABAN 20 MG TABLET PO SCH (19:00)
--- NOTE | 2019-01-29 19:29 | DS ---
[facility] Detox Discharge Summary Admission Date: 01/27/19 Discharge Date: 01/29/19 - History Present History: Alcohol Dependence Additional Comments: Patient left AMA. Follow up with PCP. Narcan kit sent to local pharmacy. If worsening symptoms are present seek medical attention. - Physical Exam Results Vital Signs: Vital Signs Temperature 99.7 F H 01/29/19 17:26 Pulse Rate 77 01/29/19 17:26 Respiratory Rate 20 01/29/19 17:26 Blood Pressure 114/71 01/29/19 17:26 O2 Sat by Pulse Oximetry (%) - Treatment Hospital Course: Discharged Condition Good Patient has Accepted a Rehab Referral to: out patient referrals - Medication Discharge Medications: Ambulatory Orders Albuterol Sulfate Inhaler - [Ventolin HFA Inhaler -] 2 puff Q4H 01/27/19 Aspirin [Aspirin EC] 81 mg PO DAILY 01/27/19 Gabapentin [Neurontin] 400 mg PO BID 01/27/19 Rivaroxaban [Xarelto] 20 mg PO DAILY 01/27/19 Naloxone HCl [Narcan] 4 mg NS 1XPACU #2 spray 01/29/19 - Diagnosis (1) Alcohol dependence with uncomplicated withdrawal Current Visit: Yes Status: Acute (2) AIDS (acquired immune deficiency syndrome) Current Visit: Yes Status: Chronic (3) Anemia Current Visit: Yes Status: Chronic Qualifiers: Anemia type: iron deficiency (4) Asthma Current Visit: Yes Status: Chronic Qualifiers: Asthma severity: unspecified severity Asthma persistence: intermittent Asthma complication type: with acute exacerbation Qualified Code(s): J45.21 - Mild intermittent asthma with (acute) exacerbation (5) Cocaine dependence Current Visit: Yes Status: Chronic Qualifiers: Substance use status: uncomplicated Qualified Code(s): F14.20 - Cocaine dependence, uncomplicated (6) Nicotine dependence Current Visit: Yes Status: Chronic Qualifiers: Nicotine product type: cigarettes Substance use status: uncomplicated Qualified Code(s): F17.210 - Nicotine dependence, cigarettes, uncomplicated (7) Hep C w/ coma, chronic Current Visit: Yes Status: Chronic (8) [id number] transgender person Current Visit: Yes Status: Chronic - AMA Did Patient Leave Against Medical Advice: Yes
[2019-01-29] MEDS: THIAMINE HCL 100 MG TABLET (FP) PO SCH (22:46)
[2019-01-30] MEDS ORDERED: chlordiazePOXIDE HCL 10 MG CAPSULE PO PRN
[2019-01-30] MEDS: chlordiazePOXIDE HCL 10 MG CAPSULE PO SCH ×3 (06:12→18:03)
[2019-01-30] MEDS: METHOCARBAMOL 500 MG TABLET PO PRN (06:12)
[2019-01-30 10:37] LABS: PH,URINE 6.5 (5.0-8.0); URINE APPEARANCE CLEAR; URINE BILIRUBIN NEGATIVE (NEGATIVE); URINE COLOR YELLOW; URINE GLUCOSE (UA) NEGATIVE (NEGATIVE); URINE KETONE NEGATIVE (NEGATIVE); URINE LEUK ESTERASE NEGATIVE (NEGATIVE); URINE NITRITE NEGATIVE (NEGATIVE); URINE PROTEIN NEGATIVE (NEGATIVE); URINE UROBILINOGEN 0.2 mg/dL (0.2-1.0)
[2019-01-30] MEDS: PRENATAL VITAMINS W/ FOLIC ACID TABLET (FP) PO SCH (10:40)
[2019-01-30] MEDS: NICOTINE 14 MG/24 HOURS TOPICAL PATCH TD SCH (10:41)
--- NOTE | 2019-01-30 11:57 | PN ---
[facility] CIWA - CIWA Score Nausea/Vomitin-No Nausea/No Vomiting Muscle Tremors: None Anxiety: 2 Agitation: 2 Paroxysmal Sweats: 2 Orientation: 0-Oriented Tacttile Disturbances: 2-Mild Itch/Numbness/Burn Auditory Disturbances: 0-None Visual Disturbances: 0-None Headache: 0-None Present CIWA-Ar Total Score: 8 S Progress Note (SOAP) Subjective: interrupted sleep, sweats, lbp Objective: 01/30/19 11:55 Vital Signs Temperature 97.7 F 01/30/19 09:58 Pulse Rate 68 01/30/19 09:58 Respiratory Rate 18 01/30/19 09:58 Blood Pressure 108/68 01/30/19 09:58 O2 Sat by Pulse Oximetry (%) Laboratory Tests 01/28/19 01/28/19 01/28/19 08:15 08:15 08:15 WBC 3.2 L RBC 4.51 Hgb 12.7 Hct 39.1 MCV 86.8 MCH 28.3 MCHC 32.6 RDW 16.5 H Plt Count 194 MPV 8.5 Sodium 143 Potassium 3.7 Chloride 107 Carbon Dioxide 29 Anion Gap 7 L BUN 15.3 Creatinine 0.8 Est GFR (CKD-EPI)AfAm 121.57 Est GFR (CKD-EPI)NonAf 104.89 Random Glucose 93 Calcium 8.4 L Total Bilirubin 0.3 AST 24 ALT 42 Alkaline Phosphatase 80 Total Protein 5.8 L Albumin 2.8 L Urine Color Urine Appearance Urine pH Ur Specific [place] Urine Protein Urine Glucose (UA) Urine Ketones Urine Blood Urine Nitrite Urine Bilirubin Urine Urobilinogen Ur Leukocyte Esterase RPR Titer Nonreactive 01/30/19 07:20 WBC RBC Hgb Hct MCV MCH MCHC RDW Plt Count MPV Sodium Potassium Chloride Carbon Dioxide Anion Gap BUN Creatinine Est GFR (CKD-EPI)AfAm Est GFR (CKD-EPI)NonAf Random Glucose Calcium Total Bilirubin AST ALT Alkaline Phosphatase Total Protein Albumin Urine Color Yellow Urine Appearance Clear Urine pH 6.5 Ur Specific [place] 1.019 Urine Protein Negative Urine Glucose (UA) Negative Urine Ketones Negative Urine Blood Negative Urine Nitrite Negative Urine Bilirubin Negative Urine Urobilinogen 0.2 Ur Leukocyte Esterase Negative RPR Titer pt aox3 lying in bed , c/o lbp Assessment: 01/30/19 11:56 withdrawal sx's hiv/aids peripheral neuropathy hypokalemia 3.7 leucopenia 10/25/19 11:58 01/30/19 12:00 Plan: cont. detox increase fluids kcl 20meq po gabapentin for neuropathy ASA 81mg lidocaine patch qd
[2019-01-30] MEDS ORDERED: LIDOCAINE 5% TOPICAL PATCH TP ONE (12:30)
[2019-01-30] MEDS ORDERED: POTASSIUM CHLORIDE TABS 20 MEQ TABLET.ER (FP) PO ONE (13:00)
[2019-01-30 17:39] VITALS: BP 126/76; PULSE 89; TEMP 97.9
--- NOTE | 2019-01-30 18:07 | DS ---
[facility] Detox Discharge Summary Admission Date: 01/27/19 Discharge Date: 01/30/19 - History Present History: Alcohol Dependence Additional Comments: Patient presented seeking alcohol detox. Pertinent Past History: Patient has medical history of anemia, Hep. C, Non hodgkin's lymphoma, asthma, HIV + - Physical Exam Results Vital Signs: Vital Signs Temperature 97.9 F 01/30/19 17:38 Pulse Rate 89 01/30/19 17:38 Respiratory Rate 18 01/30/19 17:38 Blood Pressure 126/76 01/30/19 17:38 O2 Sat by Pulse Oximetry (%) Pertinent Admission Physical Exam Findings: Patient admitted w/ alcohol withdrawal symptoms. Laboratory Last Values WBC 3.2 K/mm3 (4.0-10.0) L 01/28/19 08:15 RBC 4.51 M/mm3 (4.00-5.60) 01/28/19 08:15 Hgb 12.7 GM/dL (11.7-16.9) 01/28/19 08:15 Hct 39.1 % (35.4-49) 01/28/19 08:15 MCV 86.8 fl (80-96) 01/28/19 08:15 MCH 28.3 pg (25.7-33.7) 01/28/19 08:15 MCHC 32.6 g/dl (32.0-35.9) 01/28/19 08:15 RDW 16.5 % (11.9-15.9) H 01/28/19 08:15 Plt Count 194 K/MM3 (134-434) 01/28/19 08:15 MPV 8.5 fl (7.5-11.1) 01/28/19 08:15 Sodium 143 mmol/L (136-145) 01/28/19 08:15 Potassium 3.7 mmol/L (3.5-5.1) 01/28/19 08:15 Chloride 107 mmol/L (98-107) 01/28/19 08:15 Carbon Dioxide 29 mmol/L (21-32) 01/28/19 08:15 Anion Gap 7 MMOL/L (8-16) L 01/28/19 08:15 BUN 15.3 mg/dL (7-18) 01/28/19 08:15 Creatinine 0.8 mg/dL (0.55-1.3) 01/28/19 08:15 Est GFR (CKD-EPI)AfAm 121.57 01/28/19 08:15 Est GFR (CKD-EPI)NonAf 104.89 01/28/19 08:15 Random Glucose 93 mg/dL (74-106) 01/28/19 08:15 Calcium 8.4 mg/dL (8.5-10.1) L 01/28/19 08:15 Total Bilirubin 0.3 mg/dL (0.2-1) 01/28/19 08:15 AST 24 U/L (15-37) 01/28/19 08:15 ALT 42 U/L (13-61) 01/28/19 08:15 Alkaline Phosphatase 80 U/L (45-117) 01/28/19 08:15 Total Protein 5.8 g/dl (6.4-8.2) L 01/28/19 08:15 Albumin 2.8 g/dl (3.4-5.0) L 01/28/19 08:15 Urine Color Yellow 01/30/19 07:20 Urine Appearance Clear 01/30/19 07:20 Urine pH 6.5 (5.0-8.0) 01/30/19 07:20 Ur Specific [place] 1.019 (1.010-1.035) 01/30/19 07:20 Urine Protein Negative (NEGATIVE) 01/30/19 07:20 Urine Glucose (UA) Negative (NEGATIVE) 01/30/19 07:20 Urine Ketones Negative (NEGATIVE) 01/30/19 07:20 Urine Blood Negative (NEGATIVE) 01/30/19 07:20 Urine Nitrite Negative (NEGATIVE) 01/30/19 07:20 Urine Bilirubin Negative (NEGATIVE) 01/30/19 07:20 Urine Urobilinogen 0.2 mg/dL (0.2-1.0) 01/30/19 07:20 Ur Leukocyte Esterase Negative (NEGATIVE) 01/30/19 07:20 RPR Titer Nonreactive (NONREACTIVE) 01/28/19 08:15 Labs reviewed. - Treatment Hospital Course: Detox Protocol Followed, Responded well, Discharged Condition Good (CIWA Score Nausea/Vomitin-No Nausea/No Vomiting Muscle Tremors: None Anxiety: 1 Agitation: 1 Paroxysmal Sweats: 0 Orientation: 0-Oriented Tacttile Disturbances: 0 Auditory Disturbances: 0-None Visual Disturbances: 0-None Headache: 0-None Present CIWA-Ar Total Score: 2) - Medication Discharge Medications: Ambulatory Orders Albuterol Sulfate Inhaler - [Ventolin HFA Inhaler -] 2 puff Q4H 01/27/19 Aspirin [Aspirin EC] 81 mg PO DAILY 01/27/19 Gabapentin [Neurontin] 400 mg PO BID 01/27/19 Rivaroxaban [Xarelto] 20 mg PO DAILY 01/27/19 Nicotine Patch [Nicoderm Patch -] 14 mg TD DAILY #30 patch 01/30/19 Nicotine Polacrilex [Nicorelief -] 2 mg BC Q2H PRN #90 gum 01/30/19 - Diagnosis (1) History of hepatitis C Status: Chronic (2) Alcohol dependence with uncomplicated withdrawal Status: Acute (3) Cocaine use disorder Status: Chronic (4) Sedative, hypnotic or anxiolytic dependence, uncomplicated Status: Acute (5) Anemia Status: Suspected Qualifiers: Anemia type: unspecified type Qualified Code(s): D64.9 - Anemia, unspecified (6) Asthma Status: Chronic Qualifiers: Asthma severity: unspecified severity Asthma persistence: unspecified Asthma complication type: uncomplicated Qualified Code(s): J45.909 - Unspecified asthma, uncomplicated (7) HIV (human immunodeficiency virus infection) Status: Chronic Qualifiers: HIV symptom status: unspecified Qualified Code(s): B20 - Human immunodeficiency virus [HIV] disease (8) Nicotine dependence Status: Chronic Qualifiers: Nicotine product type: cigarettes Substance use status: uncomplicated Qualified Code(s): F17.210 - Nicotine dependence, cigarettes, uncomplicated - AMA Did Patient Leave Against Medical Advice: No
--- NOTE | 2019-01-30 18:07 | PN ---
[facility] Progress Note Note: Patient states feels much better and needs to go home. CIWA Score Nausea/Vomitin-No Nausea/No Vomiting Muscle Tremors: None Anxiety: 1 Agitation: 1 Paroxysmal Sweats: 0 Orientation: 0-Oriented Tacttile Disturbances: 0 Auditory Disturbances: 0-None Visual Disturbances: 0-None Headache: 0-None Present CIWA-Ar Total Score: 2 Vital Signs - 24 hr 01/30/19 01/30/19 01/30/19 03:30 06:00 09:58 Temperature 97.7 F 97.7 F Pulse Rate 71 68 Respiratory 18 20 18 Rate Blood Pressure 107/60 108/68 01/30/19 01/30/19 14:37 17:38 Temperature 98 F 97.9 F Pulse Rate 83 89 Respiratory 18 18 Rate Blood Pressure 127/90 126/76 Discussed relapse risks and prevention and patient verbalizes an understanding. Patient encouraged to consider community support. Discussed the importance of smoking cessation to support abstinence and patient agreed to nicotine patch and gum. Patient encouraged to f/u w/ PCP.
[2019-01-30] MEDS ORDERED: LIDOCAINE PATCH REMOVAL MC SCH ×2 (22:00)
[2019-01-30] MEDS ORDERED: GABAPENTIN 400 MG CAPSULE (FP) PO SCH (22:00)
[2019-01-31] MEDS ORDERED: chlordiazePOXIDE HCL 10 MG CAPSULE PO SCH (05:00)
[2019-01-31] MEDS ORDERED: LIDOCAINE 5% TOPICAL PATCH TP SCH (10:00)
[2019-01-31] MEDS ORDERED: ASPIRIN COATED 81 MG TABLET.EC PO SCH (10:00)
[2019-01-31] MEDS ORDERED: POTASSIUM CHLORIDE TABS 20 MEQ TABLET.ER (FP) PO SCH (10:00)
[2019-02-01] MEDS ORDERED: chlordiazePOXIDE HCL 10 MG CAPSULE PO ONE (05:00)
== END 2019-01-30 18:11 | disposition home or self-care (01) | DRG 774 ==
LOC: YASAS 17:48 → Y6N 20:56
PROVIDERS: ADMIT Allergy & Immunology; ATTEND Allergy & Immunology
PROC: HZ2ZZZZ Detoxification Services for Substance Abuse Treatment (ICD-10-PCS; principal; 2019-01-27)
DX: F10.230 Alcohol dependence with withdrawal, uncomplicated (principal); F13.230 Sedative, hypnotic or anxiolytic dependence with withdrawal, uncomplicated; F14.20 Cocaine dependence, uncomplicated; F17.210 Nicotine dependence, cigarettes, uncomplicated; F64.0 Transsexualism; D72.819 Decreased white blood cell count, unspecified; D64.9 Anemia, unspecified; J45.909 Unspecified asthma, uncomplicated; B20 Human immunodeficiency virus [HIV] disease; G62.9 Polyneuropathy, unspecified; E87.6 Hypokalemia; C85.90 Non-Hodgkin lymphoma, unspecified, unspecified site; Z87.890 Personal history of sex reassignment; Z86.19 Personal history of other infectious and parasitic diseases; Z91.013 Allergy to seafood; Z91.018 Allergy to other foods; Z88.1 Allergy status to other antibiotic agents; Z88.2 Allergy status to sulfonamides
CPT/HCPCS: 36415; 80053; 81003; 85027; 86593; 93005; 93010

== ENCOUNTER 2019-02-20 18:39 | Inpatient (IN) | payer OTHER ==
[2019-02-20 20:33] VITALS: BMI 42.8
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
[2019-02-20] MEDS ORDERED: MAGNESIUM CITRATE 300 ML BOTTLE PO PRN (21:59)
[2019-02-20] MEDS ORDERED: MAG HYDROX/AL HYDROX/SIMETH 30 ML UNIT-DOSE CUP PO PRN (21:59)
[2019-02-20] MEDS ORDERED: MENTHOL/PHENOL 1 EACH UD MM PRN (21:59)
[2019-02-20] MEDS ORDERED: chlordiazePOXIDE HCL 25 MG CAPSULE PO PRN (21:59)
[2019-02-20] MEDS ORDERED: NICOTINE POLACRILEX 2 MG GUM BUC PRN (21:59)
[2019-02-20] MEDS ORDERED: BISMUTH SUBSALICYLATE 524 MG/30 ML UD PO PRN (21:59)
[2019-02-20] MEDS ORDERED: MAGNESIUM HYDROX 2400MG/30ML ORAL SUSPENSION 30 ML CUP PO PRN (21:59)
[2019-02-20] MEDS ORDERED: guaiFENesin 200 MG/10 ML 10 ML UNIT-DOSE CUPS PO PRN (21:59)
[2019-02-20] MEDS ORDERED: ACETAMINOPHEN 325 MG TABLET (FP) PO PRN ×2 (21:59)
[2019-02-20] MEDS: chlordiazePOXIDE HCL 25 MG CAPSULE PO SCH (23:13)
[2019-02-20] MEDS: MELATONIN 5 MG TABLETS PO PRN (23:14)
[2019-02-20] MEDS: LIDOCAINE PATCH REMOVAL MC SCH (23:16)
[2019-02-20] MEDS: THIAMINE HCL 100 MG TABLET (FP) PO SCH (23:16)
[2019-02-21] MEDS: METHOCARBAMOL 500 MG TABLET PO PRN ×2 (05:05→17:02)
[2019-02-21] MEDS: chlordiazePOXIDE HCL 25 MG CAPSULE PO SCH ×4 (05:05→22:05)
[2019-02-21] MEDS ORDERED: RIVAROXABAN 15 MG TABLET PO SCH (10:00)
[2019-02-21] MEDS: PRENATAL VITAMINS W/ FOLIC ACID TABLET (FP) PO SCH (10:19)
[2019-02-21] MEDS: RIVAROXABAN 20 MG TABLET PO SCH (10:19)
[2019-02-21] MEDS: ASPIRIN COATED 81 MG TABLET.EC PO SCH (10:19)
[2019-02-21] MEDS: GABAPENTIN 100 MG CAPSULE (FP) PO SCH ×2 (10:19→22:05)
[2019-02-21] MEDS: LIDOCAINE 5% TOPICAL PATCH TP SCH (10:20)
[2019-02-21] MEDS: NICOTINE 14 MG/24 HOURS TOPICAL PATCH TD SCH (10:23)
[2019-02-21 10:24] LABS: HEMATOCRIT 37.3 % (35.4-49); HEMOGLOBIN 12.4 GM/dL (11.7-16.9); MCH 28.1 pg (25.7-33.7); MCHC 33.3 g/dl (32.0-35.9); MEAN CELL VOLUME 84.4 fl (80-96); PLATELET COUNT 255 K/MM3 (134-434); RBC 4.41 M/mm3 (4.00-5.60); RDW 15.9 % (11.9-15.9); WHITE BLOOD COUNT 3.8 K/mm3 (4.0-10.0)
[2019-02-21 10:26] LABS: ALBUMIN 3.2 g/dl (3.4-5.0); BILIRUBIN,TOTAL 0.2 mg/dL (0.2-1); BLOOD UREA NITROGEN 20.1 mg/dL (7-18); CALCIUM 8.9 mg/dL (8.5-10.1); CREATININE 0.8 mg/dL (0.55-1.3); POTASSIUM 4.1 mmol/L (3.5-5.1); TOT PROT 6.5 g/dl (6.4-8.2)
--- NOTE | 2019-02-21 12:46 | PN ---
S CIWA - CIWA Score Nausea/Vomitin-No Nausea/No Vomiting Muscle Tremors: 2 Anxiety: 4-Mod. Anxious/Guarded Agitation: 3 Paroxysmal Sweats: No Perspiration Orientation: 0-Oriented Tacttile Disturbances: 0-None Auditory Disturbances: 0-None Visual Disturbances: 0-None Headache: 0-None Present CIWA-Ar Total Score: 9 BHS Progress Note (SOAP) Subjective: Anxious, Restless. Objective: PATIENT A & O X 3, OBSERVED AMBULATING ON DETOX UNIT UNASSISTED. IN NO ACUTE DISTRESS. 02/21/19 12:45 Vital Signs Temperature 98.8 F 02/21/19 10:00 Pulse Rate 84 02/21/19 10:00 Respiratory Rate 18 02/21/19 10:00 Blood Pressure 131/59 L 02/21/19 10:00 O2 Sat by Pulse Oximetry (%) Laboratory Tests 02/21/19 02/21/19 07:55 07:55 WBC 3.8 L RBC 4.41 Hgb 12.4 Hct 37.3 MCV 84.4 MCH 28.1 MCHC 33.3 RDW 15.9 Plt Count 255 D MPV 8.0 Sodium 138 Potassium 4.1 Chloride 103 Carbon Dioxide 30 Anion Gap 5 L BUN 20.1 H Creatinine 0.8 Est GFR (CKD-EPI)AfAm 121.57 Est GFR (CKD-EPI)NonAf 104.89 Random Glucose 96 Calcium 8.9 Total Bilirubin 0.2 AST 43 H ALT 47 Alkaline Phosphatase 78 Total Protein 6.5 Albumin 3.2 L LABS NOTED. Assessment: 02/21/19 12:45 WITHDRAWAL SYMPTOMS. ELEVATED AST. 02/21/19 12:46 Plan: CONTINUE DETOX. INCREASE DAILY PO WATER INTAKE.
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
[2019-02-21] MEDS: THIAMINE HCL 100 MG TABLET (FP) PO SCH (22:05)
[2019-02-21] MEDS: LIDOCAINE PATCH REMOVAL MC SCH (22:06)
[2019-02-21] MEDS: MONTELUKAST NA 10 MG TABLET PO SCH (22:06)
[2019-02-22] MEDS: chlordiazePOXIDE HCL 25 MG CAPSULE PO SCH ×4 (05:47→23:06)
[2019-02-22] MEDS: METHOCARBAMOL 500 MG TABLET PO PRN (05:49)
--- NOTE | 2019-02-22 12:06 | PN ---
[facility] CIWA - CIWA Score Nausea/Vomitin-Mild Nausea/No Vomiting Muscle Tremors: 2 Anxiety: 1-Mildly Anxious Agitation: 2 Paroxysmal Sweats: 2 Orientation: 0-Oriented Tacttile Disturbances: 0-None Auditory Disturbances: 0-None Visual Disturbances: 0-None Headache: 0-None Present CIWA-Ar Total Score: 8 S Progress Note (SOAP) Subjective: Interrupted sleep Objective: 02/22/19 12:02 Last Vital Signs Temp Pulse Resp BP Pulse Ox 97.7 F 74 18 108/68 02/22/19 10:44 02/22/19 10:44 02/22/19 10:44 02/22/19 10:44 Laboratory Tests 02/21/19 02/21/19 07:55 07:55 WBC 3.8 L RBC 4.41 Hgb 12.4 Hct 37.3 MCV 84.4 MCH 28.1 MCHC 33.3 RDW 15.9 Plt Count 255 D MPV 8.0 Sodium 138 Potassium 4.1 Chloride 103 Carbon Dioxide 30 Anion Gap 5 L BUN 20.1 H Creatinine 0.8 Est GFR (CKD-EPI)AfAm 121.57 Est GFR (CKD-EPI)NonAf 104.89 Random Glucose 96 Calcium 8.9 Total Bilirubin 0.2 AST 43 H ALT 47 Alkaline Phosphatase 78 Total Protein 6.5 Albumin 3.2 L Labs reviewed: bun 20.1, AST 43 Assessment: 02/22/19 12:03 Withdrawal sxs Noted with azotemia and mild transaminitis Plan: Continue detox Azotemia: encouraged PO water intake Transaminitis, mild: most likely due to alcoholism, encouraged abstinence and to complete detox and consider rehab
[2019-02-22] MEDS: GABAPENTIN 100 MG CAPSULE (FP) PO SCH ×2 (12:47→23:04)
[2019-02-22] MEDS: ASPIRIN COATED 81 MG TABLET.EC PO SCH (12:47)
[2019-02-22] MEDS: RIVAROXABAN 20 MG TABLET PO SCH (12:48)
[2019-02-22] MEDS: PRENATAL VITAMINS W/ FOLIC ACID TABLET (FP) PO SCH (12:48)
[2019-02-22] MEDS: NICOTINE 14 MG/24 HOURS TOPICAL PATCH TD SCH (12:49)
[2019-02-22] MEDS: LIDOCAINE 5% TOPICAL PATCH TP SCH (12:49)
[2019-02-22] MEDS ORDERED: ALBUTEROL SO4 8 GM HFA INHALER IH PRN (13:15)
[2019-02-22] MEDS ORDERED: ALBUTEROL SO4 8 GM HFA INHALER IH ONE (13:18)
[2019-02-22] MEDS: LIDOCAINE PATCH REMOVAL MC SCH (23:04)
[2019-02-22] MEDS: THIAMINE HCL 100 MG TABLET (FP) PO SCH (23:05)
[2019-02-22] MEDS: MONTELUKAST NA 10 MG TABLET PO SCH (23:05)
[2019-02-23] MEDS ORDERED: chlordiazePOXIDE HCL 10 MG CAPSULE PO PRN
[2019-02-23] MEDS: chlordiazePOXIDE HCL 10 MG CAPSULE PO SCH ×4 (05:50→22:18)
[2019-02-23] MEDS: METHOCARBAMOL 500 MG TABLET PO PRN ×2 (05:51→21:09)
--- NOTE | 2019-02-23 10:00 | PN ---
S CIWA - CIWA Score Nausea/Vomitin-No Nausea/No Vomiting Muscle Tremors: 1-None Visible, but [place] Anxiety: 1-Mildly Anxious Agitation: 1-Slight > Activity Paroxysmal Sweats: No Perspiration Orientation: 0-Oriented Tacttile Disturbances: 0-None Auditory Disturbances: 0-None Visual Disturbances: 0-None Headache: 2-Mild CIWA-Ar Total Score: 5 BHS Progress Note (SOAP) Subjective: alert,irritable,anxious,interrupted sleep Objective: 02/23/19 09:59 Vital Signs Temperature 97.9 F 02/23/19 09:25 Pulse Rate 69 02/23/19 09:25 Respiratory Rate 16 02/23/19 09:25 Blood Pressure 100/55 L 02/23/19 09:25 O2 Sat by Pulse Oximetry (%) Laboratory Last Values WBC 3.8 K/mm3 (4.0-10.0) L 02/21/19 07:55 RBC 4.41 M/mm3 (4.00-5.60) 02/21/19 07:55 Hgb 12.4 GM/dL (11.7-16.9) 02/21/19 07:55 Hct 37.3 % (35.4-49) 02/21/19 07:55 MCV 84.4 fl (80-96) 02/21/19 07:55 MCH 28.1 pg (25.7-33.7) 02/21/19 07:55 MCHC 33.3 g/dl (32.0-35.9) 02/21/19 07:55 RDW 15.9 % (11.9-15.9) 02/21/19 07:55 Plt Count 255 K/MM3 (134-434) D 02/21/19 07:55 MPV 8.0 fl (7.5-11.1) 02/21/19 07:55 Sodium 138 mmol/L (136-145) 02/21/19 07:55 Potassium 4.1 mmol/L (3.5-5.1) 02/21/19 07:55 Chloride 103 mmol/L (98-107) 02/21/19 07:55 Carbon Dioxide 30 mmol/L (21-32) 02/21/19 07:55 Anion Gap 5 MMOL/L (8-16) L 02/21/19 07:55 BUN 20.1 mg/dL (7-18) H 02/21/19 07:55 Creatinine 0.8 mg/dL (0.55-1.3) 02/21/19 07:55 Est GFR (CKD-EPI)AfAm 121.57 02/21/19 07:55 Est GFR (CKD-EPI)NonAf 104.89 02/21/19 07:55 Random Glucose 96 mg/dL (74-106) 02/21/19 07:55 Calcium 8.9 mg/dL (8.5-10.1) 02/21/19 07:55 Total Bilirubin 0.2 mg/dL (0.2-1) 02/21/19 07:55 AST 43 U/L (15-37) H 02/21/19 07:55 ALT 47 U/L (13-61) 02/21/19 07:55 Alkaline Phosphatase 78 U/L (45-117) 02/21/19 07:55 Total Protein 6.5 g/dl (6.4-8.2) 02/21/19 07:55 Albumin 3.2 g/dl (3.4-5.0) L 02/21/19 07:55 Assessment: 02/23/19 09:59 withdrawal symptom Plan: continue detox,encourage oral fluid
[2019-02-23] MEDS: ASPIRIN COATED 81 MG TABLET.EC PO SCH (11:03)
[2019-02-23] MEDS: PRENATAL VITAMINS W/ FOLIC ACID TABLET (FP) PO SCH (11:03)
[2019-02-23] MEDS: GABAPENTIN 100 MG CAPSULE (FP) PO SCH ×2 (11:04→22:18)
[2019-02-23] MEDS: LIDOCAINE 5% TOPICAL PATCH TP SCH (11:04)
[2019-02-23] MEDS: NICOTINE 14 MG/24 HOURS TOPICAL PATCH TD SCH (11:05)
[2019-02-23] MEDS: RIVAROXABAN 20 MG TABLET PO SCH (11:05)
[2019-02-23] MEDS: MONTELUKAST NA 10 MG TABLET PO SCH (22:17)
[2019-02-23] MEDS: THIAMINE HCL 100 MG TABLET (FP) PO SCH (22:18)
[2019-02-23] MEDS: LIDOCAINE PATCH REMOVAL MC SCH (22:27)
[2019-02-24] MEDS: chlordiazePOXIDE HCL 10 MG CAPSULE PO SCH ×2 (06:18→17:31)
[2019-02-24] MEDS: METHOCARBAMOL 500 MG TABLET PO PRN (06:18)
--- NOTE | 2019-02-24 09:55 | PN ---
S CIWA - CIWA Score Nausea/Vomitin-No Nausea/No Vomiting Muscle Tremors: 1-None Visible, but [place] Anxiety: 2 Agitation: 2 Paroxysmal Sweats: No Perspiration Orientation: 0-Oriented Tacttile Disturbances: 1-Very Mild Itch/Numbness Auditory Disturbances: 0-None Visual Disturbances: 0-None Headache: 1-Very Mild CIWA-Ar Total Score: 7 BHS Progress Note (SOAP) Subjective: alert,irritable,anxious,interrupted sleep,pain in the back,chronic low back pain Objective: 02/24/19 09:54 Vital Signs Temperature 98.1 F 02/24/19 06:35 Pulse Rate 74 02/24/19 06:35 Respiratory Rate 18 02/24/19 06:35 Blood Pressure 107/55 L 02/24/19 06:35 O2 Sat by Pulse Oximetry (%) Assessment: 02/24/19 09:54 withdrawal symptom Plan: continue detox librium regimen,discharge in am
[2019-02-24] MEDS: PRENATAL VITAMINS W/ FOLIC ACID TABLET (FP) PO SCH (10:36)
[2019-02-24] MEDS: ASPIRIN COATED 81 MG TABLET.EC PO SCH (10:36)
[2019-02-24] MEDS: RIVAROXABAN 20 MG TABLET PO SCH (10:36)
[2019-02-24] MEDS: GABAPENTIN 100 MG CAPSULE (FP) PO SCH ×2 (10:37→22:10)
[2019-02-24] MEDS: NICOTINE 14 MG/24 HOURS TOPICAL PATCH TD SCH (10:39)
[2019-02-24] MEDS: LIDOCAINE 5% TOPICAL PATCH TP SCH (10:39)
[2019-02-24] MEDS: MONTELUKAST NA 10 MG TABLET PO SCH (22:10)
[2019-02-24] MEDS: THIAMINE HCL 100 MG TABLET (FP) PO SCH (22:10)
[2019-02-24] MEDS: MELATONIN 5 MG TABLETS PO PRN (22:11)
[2019-02-24] MEDS: LIDOCAINE PATCH REMOVAL MC SCH (22:11)
[2019-02-25] MEDS ORDERED: chlordiazePOXIDE HCL 10 MG CAPSULE PO ONE (05:00)
[2019-02-25] MEDS: METHOCARBAMOL 500 MG TABLET PO PRN (06:29)
--- NOTE | 2019-02-25 08:24 | DS ---
[facility] Detox Discharge Summary Admission Date: 02/20/19 Discharge Date: 02/25/19 - History Present History: Alcohol Dependence, Sedative Dependence - Physical Exam Results Vital Signs: Vital Signs Temperature 97.3 F L 02/25/19 06:12 Pulse Rate 66 02/25/19 06:12 Respiratory Rate 02/25/19 06:12 Blood Pressure 107/63 02/25/19 06:12 O2 Sat by Pulse Oximetry (%) Pertinent Admission Physical Exam Findings: pt arrived in withdrawals Vital Signs Temperature 97.3 F L 02/25/19 06:12 Pulse Rate 66 02/25/19 06:12 Respiratory Rate 02/25/19 06:12 Blood Pressure 107/63 02/25/19 06:12 O2 Sat by Pulse Oximetry (%) Laboratory Tests 02/21/19 02/21/19 07:55 07:55 WBC 3.8 L RBC 4.41 Hgb 12.4 Hct 37.3 MCV 84.4 MCH 28.1 MCHC 33.3 RDW 15.9 Plt Count 255 D MPV 8.0 Sodium 138 Potassium 4.1 Chloride 103 Carbon Dioxide 30 Anion Gap 5 L BUN 20.1 H Creatinine 0.8 Est GFR (CKD-EPI)AfAm 121.57 Est GFR (CKD-EPI)NonAf 104.89 Random Glucose 96 Calcium 8.9 Total Bilirubin 0.2 AST 43 H ALT 47 Alkaline Phosphatase 78 Total Protein 6.5 Albumin 3.2 L aaox3 ambulating no acute distress - Treatment Hospital Course: Detox Protocol Followed, Detoxed Safely, Responded well, Discharged Condition Good, Rehab Referral Accepted Patient has Accepted a Rehab Referral to: [facility] - Medication Discharge Medications: Ambulatory Orders Albuterol Sulfate Inhaler - [Ventolin HFA Inhaler -] 2 puff Q4H 01/27/19 Aspirin [Aspirin EC] 81 mg PO DAILY 01/27/19 Gabapentin [Neurontin] 600 mg PO BID 01/27/19 Rivaroxaban [Xarelto] 20 mg PO DAILY 01/27/19 Nicotine Patch [Nicoderm Patch -] 14 mg TD DAILY #30 patch 01/30/19 Nicotine Polacrilex [Nicorelief -] 2 mg BC Q2H PRN #90 gum 01/30/19 Abacavir/Dolutegravir/Lamivudi [Triumeq 600-50-300 mg Tablet] 1 tablet PO DAILY 02/20/19 Montelukast Sodium [Singulair] 10 mg PO HS 02/20/19 Quetiapine Fumarate [Seroquel -] 50 mg PO HS 02/20/19 - Diagnosis (1) Alcohol dependence with uncomplicated withdrawal Current Visit: Yes Status: Chronic (2) Sedative, hypnotic or anxiolytic dependence with withdrawal, uncomplicated Current Visit: Yes Status: Chronic (3) Benzodiazepine dependence Current Visit: Yes Status: Chronic (4) Cocaine dependence Current Visit: Yes Status: Chronic Qualifiers: Substance use status: uncomplicated Qualified Code(s): F14.20 - Cocaine dependence, uncomplicated (5) HIV (human immunodeficiency virus infection) Current Visit: Yes Status: Chronic Qualifiers: HIV symptom status: unspecified Qualified Code(s): B20 - Human immunodeficiency virus [HIV] disease (6) History of bipolar disorder Current Visit: Yes Status: Chronic (7) Insomnia Current Visit: Yes Status: Chronic (8) [id number] transgender person Current Visit: Yes Status: Chronic (9) Morbid obesity with BMI of 40.0-44.9, adult Current Visit: Yes Status: Chronic (10) Nicotine dependence Current Visit: Yes Status: Chronic Qualifiers: Nicotine product type: unspecified Substance use status: uncomplicated Qualified Code(s): F17.200 - Nicotine dependence, unspecified, uncomplicated (11) Perforated nasal septum Current Visit: Yes Status: Chronic (12) Substance induced mood disorder Current Visit: Yes Status: Chronic (13) Varicose veins of both lower extremities Current Visit: Yes Status: Chronic Qualifiers: Varicose vein complication: unspecified Qualified Code(s): I83.93 - Asymptomatic varicose veins of bilateral lower extremities (14) Alcohol use disorder Current Visit: No Status: Acute (15) No natural teeth Current Visit: No Status: Acute (16) Substance-induced anxiety disorder Current Visit: No Status: Acute (17) Substance-induced sleep disorder Current Visit: No Status: Acute (18) AIDS (acquired immune deficiency syndrome) Current Visit: No Status: Chronic (19) Asthma Current Visit: Yes Status: Chronic Qualifiers: Asthma severity: unspecified severity Asthma persistence: unspecified Asthma complication type: uncomplicated Qualified Code(s): J45.909 - Unspecified asthma, uncomplicated (20) Chronic low back pain Current Visit: Yes Status: Chronic Qualifiers: Back pain laterality: bilateral Sciatica presence: unspecified whether sciatica present Qualified Code(s): M54.5 - Low back pain; G89.29 - Other chronic pain (21) Cocaine use disorder Current Visit: Yes Status: Chronic (22) Hep C w/ coma, chronic Current Visit: No Status: Chronic (23) MDD (major depressive disorder) Current Visit: No Status: Chronic Qualifiers: Major depression recurrence: unspecified whether recurrent Active/ Remission status: remission status unspecified Qualified Code(s): F32.9 - Major depressive disorder, single episode, unspecified (24) Drug-induced mood disorder Current Visit: No Status: Suspected - AMA Did Patient Leave Against Medical Advice: No
[2019-02-25 09:27] VITALS: BP 102/63; PULSE 87; TEMP 97.9
[2019-02-25] MEDS: PRENATAL VITAMINS W/ FOLIC ACID TABLET (FP) PO SCH (12:17)
[2019-02-25] MEDS: ASPIRIN COATED 81 MG TABLET.EC PO SCH (12:17)
[2019-02-25] MEDS: NICOTINE 14 MG/24 HOURS TOPICAL PATCH TD SCH (12:17)
[2019-02-25] MEDS: GABAPENTIN 100 MG CAPSULE (FP) PO SCH (12:17)
[2019-02-25] MEDS: RIVAROXABAN 20 MG TABLET PO SCH (12:17)
[2019-02-25] MEDS: LIDOCAINE 5% TOPICAL PATCH TP SCH (12:17)
== END 2019-02-25 12:05 | disposition other institution (70) | DRG 774 ==
LOC: YASAS 18:39 → Y6N 22:32
PROVIDERS: ADMIT Allergy & Immunology; ATTEND Allergy & Immunology
PROC: HZ2ZZZZ Detoxification Services for Substance Abuse Treatment (ICD-10-PCS; principal; 2019-02-20)
DX: F10.230 Alcohol dependence with withdrawal, uncomplicated (principal); F13.20 Sedative, hypnotic or anxiolytic dependence, uncomplicated; F14.20 Cocaine dependence, uncomplicated; F17.210 Nicotine dependence, cigarettes, uncomplicated; F19.24 Other psychoactive substance dependence with psychoactive substance-induced mood disorder; F19.280 Other psychoactive substance dependence with psychoactive substance-induced anxiety disorder; F19.282 Other psychoactive substance dependence with psychoactive substance-induced sleep disorder; F32.9 Major depressive disorder, single episode, unspecified; J45.909 Unspecified asthma, uncomplicated; B20 Human immunodeficiency virus [HIV] disease; G47.00 Insomnia, unspecified; F64.0 Transsexualism; I83.93 Asymptomatic varicose veins of bilateral lower extremities; K08.109 Complete loss of teeth, unspecified cause, unspecified class; Z85.72 Personal history of non-Hodgkin lymphomas; I48.91 Unspecified atrial fibrillation; M54.5 Low back pain; G89.29 Other chronic pain; R74.0 Nonspecific elevation of levels of transaminase and lactic acid dehydrogenase [LDH]; G62.9 Polyneuropathy, unspecified; I45.10 Unspecified right bundle-branch block; E66.01 Morbid (severe) obesity due to excess calories; Z68.41 Body mass index [BMI] 40.0-44.9, adult; Z87.890 Personal history of sex reassignment; Z91.013 Allergy to seafood; Z91.018 Allergy to other foods; Z88.1 Allergy status to other antibiotic agents; Z88.2 Allergy status to sulfonamides; Z79.82 Long term (current) use of aspirin; Z86.19 Personal history of other infectious and parasitic diseases; Z91.410 Personal history of adult physical and sexual abuse; Z56.0 Unemployment, unspecified
CPT/HCPCS: 36415; 80053; 85027

== ENCOUNTER 2019-02-25 11:51 | Inpatient (IN) | payer OTHER ==
[2019-02-25] MEDS ORDERED: MENTHOL/PHENOL 1 EACH UD MM PRN (13:48)
[2019-02-25] MEDS ORDERED: hydrOXYzine PAMOATE 50 MG CAPSULE (FP) PO PRN (13:48)
[2019-02-25] MEDS ORDERED: ACETAMINOPHEN 325 MG TABLET (FP) PO PRN (13:48)
[2019-02-25] MEDS ORDERED: guaiFENesin 200 MG/10 ML 10 ML UNIT-DOSE CUPS PO PRN (13:48)
[2019-02-25] MEDS ORDERED: IBUPROFEN 400 MG TABLET (FP) PO PRN (13:48)
[2019-02-25] MEDS ORDERED: NICOTINE POLACRILEX 4 MG GUM BUC PRN (13:48)
[2019-02-25] MEDS ORDERED: MAG HYDROX/AL HYDROX/SIMETH 30 ML UNIT-DOSE CUP PO PRN (13:48)
[2019-02-25] MEDS ORDERED: MAGNESIUM CITRATE 300 ML BOTTLE PO PRN (13:48)
[2019-02-25] MEDS ORDERED: LOPERAMIDE HCL 2 MG CAPSULE PO PRN (13:48)
[2019-02-25] MEDS ORDERED: MAGNESIUM HYDROX 2400MG/30ML ORAL SUSPENSION 30 ML CUP PO PRN (13:48)
[2019-02-25] MEDS ORDERED: P-EPHED 60MG/TRIPROLIDI 2.5MG TABLET PO PRN (13:48)
--- NOTE | 2019-02-25 13:49 | HP ---
[facility] Rehab Assess/Revision - Admission History Admitted to Rehab from: [address] - Vital signs Vital Signs: Vital Signs Period Temp Pulse Resp BP Sys/Colon Pulse Ox Last 24 Hr 98.2 F 83 20 112/72 - Findings Detox History & Physical reviewed: Yes Concur with findings: Yes Inpatient Rehab Admission - Rehab Decision to Admit Inpatient rehab admission?: Yes - Initial Determination Are CD services needed?: Yes Free of communicable disease: Yes Not in need of hospitalization: Yes - Rehab Admission Criteria Previous failed treatment: Yes Poor recovery environment: Yes Comorbidities: Yes Lacks judgement: Yes Patient is meeting Inpatient Rehab admission criteria:: Yes
[2019-02-25] MEDS ORDERED: ALBUTEROL SO4 8 GM HFA INHALER IH SCH (14:00)
[2019-02-25] MEDS ORDERED: ALBUTEROL SO4 8 GM HFA INHALER IH PRN (14:46)
[2019-02-25] MEDS ORDERED: PT OWN MED DRAWER 7, Y5N ONE (15:51)
[2019-02-25] MEDS: LIDOCAINE PATCH REMOVAL MC SCH (21:17)
[2019-02-25] MEDS: MONTELUKAST NA 10 MG TABLET PO SCH (21:17)
[2019-02-25] MEDS: THIAMINE HCL 100 MG TABLET (FP) PO SCH (21:17)
[2019-02-25] MEDS: GABAPENTIN 300 MG CAPSULE (FP) PO SCH (21:17)
[2019-02-25] MEDS ORDERED: MELATONIN 5 MG TABLETS PO PRN (22:00)
[2019-02-26] MEDS: GABAPENTIN 300 MG CAPSULE (FP) PO SCH ×2 (09:39→23:46)
[2019-02-26] MEDS ORDERED: ASPIRIN COATED 81 MG TABLET.EC PO SCH (10:00)
[2019-02-26] MEDS ORDERED: PRENATAL VITAMINS W/ FOLIC ACID TABLET (FP) PO SCH (10:00)
[2019-02-26] MEDS ORDERED: LIDOCAINE 5% TOPICAL PATCH TP SCH (10:00)
[2019-02-26] MEDS ORDERED: NICOTINE 21 MG/24 HOURS TOPICAL PATCH TD SCH (10:00)
[2019-02-26] MEDS: METHOCARBAMOL 750 MG TABLET PO SCH ×2 (11:00→23:47)
[2019-02-26] MEDS ORDERED: RIVAROXABAN 20 MG TABLET PO SCH (18:00)
[2019-02-26] MEDS ORDERED: ALBUTEROL SO4 0.083% IH SOL 2.5 MG/3 ML VIAL.NEB. NEB PRN (18:49)
--- NOTE | 2019-02-26 19:16 | PN ---
S Progress Note Note: called by nursing staff for pt c/o shortness of breath , difficulty breathing . Pt found supine in bed , w/ labored breathing Active Medications Acetaminophen (Tylenol -) 650 mg PO Q4H PRN PRN Reason: FEVER Al Hydroxide/Mg Hydroxide (Mylanta Oral Suspension -) 30 ml PO Q6H PRN PRN Reason: DYSPEPSIA Albuterol Sulfate (Ventolin Hfa Inhaler -) 2 puff IH Q4H PRN PRN Reason: ASTHMA Last Admin: 02/26/19 18:36 Dose: 2 puff Albuterol Sulfate (Ventolin 0.083% Nebulizer Soln -) 1 amp NEB Q4H PRN PRN Reason: SHORT OF BREATH/WHEEZING Aspirin (Ecotrin -) 81 mg PO DAILY [facility] Last Admin: 02/26/19 09:39 Dose: 81 mg Eucalyptus/Menthol/Phenol/Sorbitol (Cepastat Lozenge -) 1 each MM Q4H PRN PRN Reason: SORE THROAT Gabapentin (Neurontin -) 600 mg PO BID [facility] Last Admin: 02/26/19 09:39 Dose: 600 mg Guaifenesin (Robitussin -) 10 ml PO Q6H PRN PRN Reason: COUGH Hydroxyzine Pamoate (Vistaril -) 50 mg PO Q4H PRN PRN Reason: AGITATION Lidocaine (Lidoderm Patch -) 1 patch TP DAILY [facility] Last Admin: 02/26/19 09:39 Dose: 1 patch Loperamide HCl (Imodium -) 4 mg PO Q6H PRN PRN Reason: DIARRHEA Magnesium Citrate (Citroma -) 300 ml PO Q48H PRN PRN Reason: CONSTIPATION Magnesium Hydroxide (Milk Of Magnesia -) 30 ml PO DAILY PRN PRN Reason: CONSTIPATION Melatonin (Melatonin) 5 mg PO HS PRN PRN Reason: INSOMNIA Methocarbamol (Robaxin -) 750 mg PO BID [facility] Last Admin: 02/26/19 11:00 Dose: 750 mg Miscellaneous (Lidoderm Patch Removal) 1 each MC DAILY@2200 [facility] Last Admin: 02/25/19 21:17 Dose: 1 each Montelukast Sodium (Singulair -) 10 mg PO HS [facility] Last Admin: 02/25/19 21:17 Dose: 10 mg Nicotine (Nicoderm Patch -) 21 mg TD DAILY [facility] Last Admin: 02/26/19 09:40 Dose: Not Given Nicotine Polacrilex (Nicorette Gum -) 4 mg BUC Q2H PRN PRN Reason: NICOTINE REPLACEMENT RX Multivit/Folic Acid/Iron ( Vitamins (Sjr) -) 1 tab PO DAILY [facility] Last Admin: 02/26/19 09:39 Dose: 1 tab Pseudoephedrine/Triprolidine (Actifed -) 1 combo PO TID PRN PRN Reason: NASAL CONGESTION Rivaroxaban (Xarelto) 20 mg PO DAILY@1800 [facility] Last Admin: 02/26/19 17:57 Dose: 20 mg Thiamine HCl (Vitamin B1 -) 100 mg PO HS [facility] Last Admin: 02/25/19 21:17 Dose: 100 mg Vital Signs - 24 hr 02/26/19 02/26/19 02/26/19 03:30 07:05 10:00 Temperature 97.7 F Pulse Rate 85 69 Respiratory 18 18 Rate Blood Pressure 115/76 101/60 Resp : moderate distress, accessory mm use , + wheezing throughout lung acosta . EXT : marked pedal edema , varicose veins A : Asthma exacerbation - EMS activated via 911 , Albuterol nebulizer tx STAT . report to [facility] Dr Hendrix . Pt left w/ EMS
[2019-02-26 19:41] VITALS: BP 139/84; PULSE 85; TEMP 98.5
[2019-02-26] MEDS: LIDOCAINE PATCH REMOVAL MC SCH (23:46)
[2019-02-26] MEDS: THIAMINE HCL 100 MG TABLET (FP) PO SCH (23:47)
[2019-02-26] MEDS: MONTELUKAST NA 10 MG TABLET PO SCH (23:47)
== END 2019-02-27 08:20 | disposition short-term general hospital (02) | DRG 772 ==
LOC: YASAS 11:51 → Y3E 11:52
PROVIDERS: ADMIT Neuromusculoskeletal Medicine & OMM; ATTEND Neuromusculoskeletal Medicine & OMM
PROC: HZ42ZZZ Group Counseling for Substance Abuse Treatment, Cognitive-Behavioral (ICD-10-PCS; principal; 2019-02-25)
DX: F10.20 Alcohol dependence, uncomplicated (principal); F14.20 Cocaine dependence, uncomplicated; F13.20 Sedative, hypnotic or anxiolytic dependence, uncomplicated; F17.210 Nicotine dependence, cigarettes, uncomplicated; F31.9 Bipolar disorder, unspecified; F41.9 Anxiety disorder, unspecified; F64.0 Transsexualism; B20 Human immunodeficiency virus [HIV] disease; G62.9 Polyneuropathy, unspecified; J45.901 Unspecified asthma with (acute) exacerbation; G47.00 Insomnia, unspecified; I48.91 Unspecified atrial fibrillation; Z79.01 Long term (current) use of anticoagulants; I45.10 Unspecified right bundle-branch block; I83.893 Varicose veins of bilateral lower extremities with other complications; J34.89 Other specified disorders of nose and nasal sinuses; E66.01 Morbid (severe) obesity due to excess calories; Z68.41 Body mass index [BMI] 40.0-44.9, adult; Z88.2 Allergy status to sulfonamides; Z91.013 Allergy to seafood; Z91.018 Allergy to other foods
CPT/HCPCS: 94640

== ENCOUNTER 2019-03-03 12:31 | Inpatient (IN) | payer OTHER ==
[2019-03-03 12:45] VITALS: BP 128/82; PULSE 76; TEMP 99.1; BMI 46.0
[2019-03-03] MEDS ORDERED: ALBUTEROL SO4 2.5/IPRATROPIUM 0.5 INH SOL 3 ML VIAL.NEB. NEB PRN (13:07)
[2019-03-03] MEDS ORDERED: MAGNESIUM CITRATE 300 ML BOTTLE PO PRN (13:09)
[2019-03-03] MEDS ORDERED: MENTHOL/PHENOL 1 EACH UD MM PRN (13:09)
[2019-03-03] MEDS ORDERED: ACETAMINOPHEN 325 MG TABLET (FP) PO PRN (13:09)
[2019-03-03] MEDS ORDERED: MAG HYDROX/AL HYDROX/SIMETH 30 ML UNIT-DOSE CUP PO PRN (13:09)
[2019-03-03] MEDS ORDERED: guaiFENesin 200 MG/10 ML 10 ML UNIT-DOSE CUPS PO PRN (13:09)
[2019-03-03] MEDS ORDERED: LOPERAMIDE HCL 2 MG CAPSULE PO PRN (13:09)
[2019-03-03] MEDS ORDERED: P-EPHED 60MG/TRIPROLIDI 2.5MG TABLET PO PRN (13:09)
[2019-03-03] MEDS ORDERED: MAGNESIUM HYDROX 2400MG/30ML ORAL SUSPENSION 30 ML CUP PO PRN (13:09)
[2019-03-03] MEDS ORDERED: BUDESONIDE/FORMETEROL FUMARATE 160/4.5 mcg INHALER IH SCH (13:15)
[2019-03-03] MEDS ORDERED: NICOTINE 14 MG/24 HOURS TOPICAL PATCH TD SCH (13:15)
[2019-03-03] MEDS ORDERED: ALBUTEROL SO4 8 GM HFA INHALER IH SCH (13:15)
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
[2019-03-03] MEDS ORDERED: AMOX TR/POT CLAV 500MG/125MG TABLETS (FP) PO SCH (17:30)
[2019-03-03] MEDS ORDERED: RIVAROXABAN 15 MG TABLET PO SCH (22:00)
[2019-03-03] MEDS ORDERED: MONTELUKAST NA 10 MG TABLET PO SCH (22:00)
[2019-03-03] MEDS ORDERED: THIAMINE HCL 100 MG TABLET (FP) PO SCH (22:00)
[2019-03-03] MEDS ORDERED: MELATONIN 5 MG TABLETS PO PRN (22:00)
[2019-03-04] MEDS ORDERED: predniSONE 20 MG TABLET (UD) PO ONE (10:00)
[2019-03-04] MEDS ORDERED: ABACAVIR/DOLUTEGRAVIR/LAMIVUDI (TRIUMEQ) TABLET -NF PO SCH (10:00)
[2019-03-04] MEDS ORDERED: PRENATAL VITAMINS W/ FOLIC ACID TABLET (FP) PO SCH (10:00)
== END 2019-03-03 13:50 | disposition short-term general hospital (02) | DRG 772 ==
LOC: YASAS 12:31 → Y3E 12:56
PROVIDERS: ADMIT Neuromusculoskeletal Medicine & OMM; ATTEND Neuromusculoskeletal Medicine & OMM
PROC: HZ42ZZZ Group Counseling for Substance Abuse Treatment, Cognitive-Behavioral (ICD-10-PCS; principal; 2019-03-03)
DX: F10.20 Alcohol dependence, uncomplicated (principal); F13.20 Sedative, hypnotic or anxiolytic dependence, uncomplicated; F14.20 Cocaine dependence, uncomplicated; F12.20 Cannabis dependence, uncomplicated; F17.210 Nicotine dependence, cigarettes, uncomplicated; F64.0 Transsexualism; B20 Human immunodeficiency virus [HIV] disease; J45.901 Unspecified asthma with (acute) exacerbation; I83.891 Varicose veins of right lower extremity with other complications; B18.2 Chronic viral hepatitis C; J34.89 Other specified disorders of nose and nasal sinuses; E66.01 Morbid (severe) obesity due to excess calories; Z68.41 Body mass index [BMI] 40.0-44.9, adult; Z88.2 Allergy status to sulfonamides; Z91.013 Allergy to seafood; Z91.018 Allergy to other foods

== ENCOUNTER 2019-11-28 12:09 | Inpatient (IN) | payer OTHER ==
--- NOTE | 2019-11-28 13:14 | BHS.RME ---
Substance Use & Tx History - Substance Use History Alcohol Substance amount: 1 quart Frequency of use: Daily Substance route: Oral Date of Last Use: 11/28/19 Heroin Substance amount: 2 bags Frequency of use: Daily Substance route: Inhalation (ex: sniffing or snorting) Date of Last Use: 11/27/19 Methadone Substance amount: 30 Frequency of use: Daily Substance route: Oral Date of Last Use: 11/27/19 Klonopin Substance amount: 6mg Frequency of use: Daily Substance route: Oral Date of Last Use: 11/26/19 Marijuana/Hashish Substance amount: 2 joints Frequency of use: Daily Substance route: Smoking Date of Last Use: 11/28/19 Cocaine-Crack Substance amount: $100 Frequency of use: Daily Substance route: Smoking Date of Last Use: 11/28/19 - Last Treatment Date of last treatment: 09/22/19 Where was last treatment: Detox Physical/Psych/Mental Status - Behavior General Behavior: Increased activity (restlessness, agitation) Eye Contact: Normal Other Behaviors: Stereotypes - Cooperativeness Cooperativeness: Cooperative - Thinking Thought Processes: Tight, Logical Thought content: Future oriented - Physical Health Problems Is patient presently having any pain?: Yes Does patient presently have any injuries (include location): No Does patient currently have a fever: No COWS - Scale Resting Pulse: 0= PA 80 or Below Sweatin= Chills/Flushing Restless Observation: 3= Extraneous Movement Pupil Size: 0= Normal to Room Light Bone or Joint Aches: 1= Mild Discomfort Runny Nose/ Eye Tearin= Nasal Congestion GI Upset > 30mins: 1= Stomach Cramp Tremor Observation: 1= Tremor [place], Not Seen Yawning Observation: 1= 1-2x During Session Anxiety or Irritability: 1=Feels Anxious/Irritable Goose Flesh Skin: 3=Piloerection COWS Score: 13 CIWA Nausea/Vomitin-Mild Nausea/No Vomiting Muscle Tremors: 2 Anxiety: 2 Agitation: 2 Paroxysmal Sweats: 2 Orientation: 0-Oriented Tacttile Disturbances: 2-Mild Itch/Numbness/Burn Auditory Disturbances: 0-None Visual Disturbances: 0-None Headache: 2-Mild CIWA-Ar Total Score: 13
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
[2019-11-28] MEDS ORDERED: METHOCARBAMOL 500 MG TABLET PO PRN (13:27)
[2019-11-28] MEDS ORDERED: NALOXONE HCL 0.4 MG/ML VIAL IM PRN (13:27)
[2019-11-28] MEDS ORDERED: METHADONE HCL 10 MG TABLET (FOR DETOX USE ONLY) PO ONE (13:27)
[2019-11-28] MEDS ORDERED: MAG HYDROX/AL HYDROX/SIMETH 30 ML UNIT-DOSE CUP PO PRN (13:27)
[2019-11-28] MEDS ORDERED: BISMUTH SUBSALICYLATE 524 MG/30 ML UD PO PRN (13:27)
[2019-11-28] MEDS ORDERED: chlordiazePOXIDE HCL 10 MG CAPSULE PO PRN (13:27)
[2019-11-28] MEDS ORDERED: chlordiazePOXIDE HCL 25 MG CAPSULE PO ONE (13:27)
[2019-11-28] MEDS ORDERED: IBUPROFEN 400 MG TABLET (FP) PO PRN (13:27)
[2019-11-28] MEDS ORDERED: ACETAMINOPHEN 325 MG TABLET (FP) PO PRN ×2 (13:27)
[2019-11-28] MEDS ORDERED: cloNIDine HCL 0.1 MG TABLET PO PRN (13:27)
[2019-11-28] MEDS ORDERED: MAGNESIUM HYDROX 2400MG/30ML ORAL SUSPENSION 30 ML CUP PO PRN (13:27)
[2019-11-28] MEDS ORDERED: MAGNESIUM CITRATE 300 ML BOTTLE PO PRN (13:27)
[2019-11-28] MEDS ORDERED: MENTHOL/PHENOL 1 EACH UD MM PRN (13:27)
[2019-11-28] MEDS ORDERED: NICOTINE POLACRILEX 2 MG GUM BUC PRN (13:27)
[2019-11-28 14:02] VITALS: BMI 43.4
[2019-11-28] MEDS: THIAMINE HCL 100 MG TABLET (FP) PO SCH (22:29)
[2019-11-28] MEDS: MELATONIN 5 MG TABLETS PO SCH (22:29)
[2019-11-28] MEDS: chlordiazePOXIDE HCL 25 MG CAPSULE PO SCH (22:29)
[2019-11-29] MEDS: ALBUTEROL SO4 0.083% IH SOL 2.5 MG/3 ML VIAL.NEB. NEB PRN (04:39)
[2019-11-29] MEDS: chlordiazePOXIDE HCL 25 MG CAPSULE PO SCH ×3 (06:21→20:37)
[2019-11-29] MEDS ORDERED: METHADONE HCL 5 MG TABLET (FOR DETOX USE ONLY) PO ONE ×2 (10:00)
[2019-11-29] MEDS: NICOTINE 7 MG/24 HOURS TOPICAL PATCH TD SCH (10:09)
[2019-11-29] MEDS: PRENATAL VITAMINS W/ FOLIC ACID TABLET (FP) PO SCH (10:09)
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
--- NOTE | 2019-11-29 11:41 | PN ---
S CIWA - CIWA Score Nausea/Vomitin-No Nausea/No Vomiting Muscle Tremors: 2 Anxiety: 2 Agitation: 2 Paroxysmal Sweats: 3 Orientation: 0-Oriented Tacttile Disturbances: 0-None Auditory Disturbances: 0-None Visual Disturbances: 2-Mild Sensitivity Headache: 0-None Present CIWA-Ar Total Score: 11 S COWS - Scale Resting Pulse: 0= [place] 80 or Below Sweatin= No chills or Flushing Restless Observation: 1= Difficult to Sit Still Pupil Size: 0= Normal to Room Light Bone or Joint Aches: 2= Severe Diffuse Aches Runny Nose/ Eye Tearin= None GI Upset > 30mins: 0= None Tremor Observation of Outstretched Hands: 2= Slight Tremor Visible Yawning Observation: 0= None Anxiety or Irritability: 2=Irritable/Anxious Goose Flesh Skin: 0=Smooth Skin COWS Score: 7 S Progress Note (SOAP) Subjective: Complaints of dry scaly feet, sweats, tremors, anxiety, body aches and agitation. Objective: 11/29/19 11:39 Vital Signs 11/29/19 11/29/19 11/29/19 05:09 05:36 09:12 Temperature 97.3 F L 97.8 F Pulse Rate 80 62 64 Respiratory 20 20 Rate Blood Pressure 106/63 111/69 O2 Sat by Pulse 97 95 Oximetry (%) Labs pending. Assessment: 11/29/19 11:40 Patient was seen and examined at bedside. Alert and oriented x 3, in no acute respiratory distress. Full ROM, ambulatory without assistance. Withdrawal symptoms. Dry, scaly b/l feet. Plan: Continue detox protocol. Eucerin for dry feet.
[2019-11-29 12:14] LABS: HEMATOCRIT 35.9 % (35.4-49); HEMOGLOBIN 11.5 GM/dL (11.7-16.9); MCH 27.1 pg (25.7-33.7); MCHC 32.2 g/dl (32.0-35.9); MEAN CELL VOLUME 84.4 fl (80-96); MEAN PLT VOLUME 8.4 fl (7.5-11.1); PLATELET COUNT 211 K/MM3 (134-434); RBC 4.25 M/mm3 (4.00-5.60); WHITE BLOOD COUNT 2.8 K/mm3 (4.0-10.0)
[2019-11-29] MEDS: MINERAL OIL/PETROLAT/WATER TOPICAL CREAM 113 GM JAR TP SCH ×2 (12:24→22:06)
[2019-11-29 12:29] LABS: ALBUMIN 3.2 g/dl (3.4-5.0); BILIRUBIN,TOTAL 0.5 mg/dL (0.2-1); BLOOD UREA NITROGEN 16.8 mg/dL (7-18); CALCIUM 8.3 mg/dL (8.5-10.1); POTASSIUM 4.2 mmol/L (3.5-5.1); TOT PROT 6.8 g/dl (6.4-8.2)
[2019-11-29] MEDS: MELATONIN 5 MG TABLETS PO SCH (22:06)
[2019-11-29] MEDS: THIAMINE HCL 100 MG TABLET (FP) PO SCH (22:07)
[2019-11-29] MEDS: QUEtiapine FUMARATE 50 MG TABLET PO SCH (22:07)
[2019-11-30] MEDS: chlordiazePOXIDE 5 MG CAPSULE PO SCH ×3 (06:29→22:03)
[2019-11-30] MEDS ORDERED: METHADONE HCL 10 MG TABLET (FOR DETOX USE ONLY) PO ONE (10:00)
[2019-11-30] MEDS: MINERAL OIL/PETROLAT/WATER TOPICAL CREAM 113 GM JAR TP SCH (11:09)
[2019-11-30] MEDS: NICOTINE 7 MG/24 HOURS TOPICAL PATCH TD SCH (11:09)
[2019-11-30] MEDS: PRENATAL VITAMINS W/ FOLIC ACID TABLET (FP) PO SCH (11:10)
--- NOTE | 2019-11-30 11:30 | PN ---
S CIWA - CIWA Score Nausea/Vomitin-No Nausea/No Vomiting Muscle Tremors: None Anxiety: 2 Agitation: 0-Normal Activity Paroxysmal Sweats: 2 Orientation: 0-Oriented Tacttile Disturbances: 0-None Auditory Disturbances: 0-None Visual Disturbances: 0-None Headache: 2-Mild CIWA-Ar Total Score: 6 [facility] COWS - Scale Resting Pulse: 0= [place] 80 or Below Sweatin= No chills or Flushing Restless Observation: 1= Difficult to Sit Still Pupil Size: 0= Normal to Room Light Bone or Joint Aches: 2= Severe Diffuse Aches Runny Nose/ Eye Tearin= None GI Upset > 30mins: 0= None Tremor Observation of Outstretched Hands: 0= None Yawning Observation: 1= 1-2x During Session Anxiety or Irritability: 2=Irritable/Anxious Goose Flesh Skin: 0=Smooth Skin COWS Score: 6 [facility] Progress Note (SOAP) Subjective: c/o anxiety, headache, and muscle aches. Objective: 11/30/19 11:28 Vital Signs 11/30/19 11/30/19 06:14 08:34 Temperature 97.8 F 98.0 F Pulse Rate 61 75 Respiratory 18 18 Rate Blood Pressure 135/62 131/64 O2 Sat by Pulse 96 Oximetry (%) Laboratory Last Values WBC 2.8 K/mm3 (4.0-10.0) L 11/29/19 07:15 RBC 4.25 M/mm3 (4.00-5.60) 11/29/19 07:15 Hgb 11.5 GM/dL (11.7-16.9) L 11/29/19 07:15 Hct 35.9 % (35.4-49) 11/29/19 07:15 MCV 84.4 fl (80-96) 11/29/19 07:15 MCH 27.1 pg (25.7-33.7) 11/29/19 07:15 MCHC 32.2 g/dl (32.0-35.9) 11/29/19 07:15 RDW 17.0 % (11.9-15.9) H 11/29/19 07:15 Plt Count 211 K/MM3 (134-434) 11/29/19 07:15 MPV 8.4 fl (7.5-11.1) 11/29/19 07:15 Sodium 140 mmol/L (136-145) 11/29/19 07:15 Potassium 4.2 mmol/L (3.5-5.1) 11/29/19 07:15 Chloride 107 mmol/L (98-107) 11/29/19 07:15 Carbon Dioxide 26 mmol/L (21-32) 11/29/19 07:15 Anion Gap 7 MMOL/L (8-16) L 11/29/19 07:15 BUN 16.8 mg/dL (7-18) 11/29/19 07:15 Creatinine 1.0 mg/dL (0.55-1.3) 11/29/19 07:15 Est GFR (CKD-EPI)AfAm 101.26 11/29/19 07:15 Est GFR (CKD-EPI)NonAf 87.37 11/29/19 07:15 Random Glucose 96 mg/dL (74-106) 11/29/19 07:15 Calcium 8.3 mg/dL (8.5-10.1) L 11/29/19 07:15 Total Bilirubin 0.5 mg/dL (0.2-1) 11/29/19 07:15 AST 51 U/L (15-37) H 11/29/19 07:15 ALT 52 U/L (13-61) 11/29/19 07:15 Alkaline Phosphatase 93 U/L (45-117) 11/29/19 07:15 Total Protein 6.8 g/dl (6.4-8.2) 11/29/19 07:15 Albumin 3.2 g/dl (3.4-5.0) L 11/29/19 07:15 Syphilis Serology Non-reactive (NONREACTIVE) 11/29/19 07:15 COVID-19 (MELVIN) Not detected (Not Detected) 11/28/19 14:25 Labs noted. Assessment: 11/30/19 11:28 AOX3 and in no acute respiratory. Full ROM, ambulating in the unit. Withdrawal symptoms. Plan: continue detox.
[2019-11-30] MEDS: ALBUTEROL SO4 HFA INHALER IH PRN (12:31)
[2019-11-30] MEDS: QUEtiapine FUMARATE 50 MG TABLET PO SCH (22:03)
[2019-11-30] MEDS: THIAMINE HCL 100 MG TABLET (FP) PO SCH (22:03)
[2019-11-30] MEDS: MELATONIN 5 MG TABLETS PO SCH (22:03)
[2019-12-01] MEDS ORDERED: chlordiazePOXIDE HCL 10 MG CAPSULE PO PRN
[2019-12-01] MEDS ORDERED: METHADONE HCL 5 MG TABLET (FOR DETOX USE ONLY) PO ONE (06:00)
[2019-12-01] MEDS: chlordiazePOXIDE HCL 10 MG CAPSULE PO SCH ×2 (07:38→14:05)
[2019-12-01] MEDS: NICOTINE 7 MG/24 HOURS TOPICAL PATCH TD SCH (10:17)
[2019-12-01] MEDS: MINERAL OIL/PETROLAT/WATER TOPICAL CREAM 113 GM JAR TP SCH (10:17)
[2019-12-01] MEDS: PRENATAL VITAMINS W/ FOLIC ACID TABLET (FP) PO SCH (10:17)
--- NOTE | 2019-12-01 12:15 | PN ---
[facility] CIWA - CIWA Score Nausea/Vomitin-No Nausea/No Vomiting Muscle Tremors: None Anxiety: 2 Agitation: 0-Normal Activity Paroxysmal Sweats: 2 Orientation: 0-Oriented Tacttile Disturbances: 0-None Auditory Disturbances: 0-None Visual Disturbances: 0-None Headache: 0-None Present CIWA-Ar Total Score: 4 S COWS - Scale Resting Pulse: 0= [place] 80 or Below Sweatin= No chills or Flushing Restless Observation: 0= Sits Still Pupil Size: 0= Normal to Room Light Bone or Joint Aches: 2= Severe Diffuse Aches Runny Nose/ Eye Tearin= None GI Upset > 30mins: 0= None Tremor Observation of Outstretched Hands: 0= None Yawning Observation: 0= None Anxiety or Irritability: 2=Irritable/Anxious Goose Flesh Skin: 0=Smooth Skin COWS Score: 4 [facility] Progress Note (SOAP) Subjective: c/o mild withdrawal symptoms. Objective: 12/01/19 12:11 Vital Signs 12/01/19 12/01/19 12/01/19 06:24 07:33 09:00 Temperature 97.3 F L 98.2 F 98.2 F Pulse Rate 44 L 71 69 Respiratory 18 18 18 Rate Blood Pressure 110/74 104/60 103/58 L O2 Sat by Pulse 98 98 96 Oximetry (%) Laboratory Last Values WBC 2.8 K/mm3 (4.0-10.0) L 11/29/19 07:15 RBC 4.25 M/mm3 (4.00-5.60) 11/29/19 07:15 Hgb 11.5 GM/dL (11.7-16.9) L 11/29/19 07:15 Hct 35.9 % (35.4-49) 11/29/19 07:15 MCV 84.4 fl (80-96) 11/29/19 07:15 MCH 27.1 pg (25.7-33.7) 11/29/19 07:15 MCHC 32.2 g/dl (32.0-35.9) 11/29/19 07:15 RDW 17.0 % (11.9-15.9) H 11/29/19 07:15 Plt Count 211 K/MM3 (134-434) 11/29/19 07:15 MPV 8.4 fl (7.5-11.1) 11/29/19 07:15 Sodium 140 mmol/L (136-145) 11/29/19 07:15 Potassium 4.2 mmol/L (3.5-5.1) 11/29/19 07:15 Chloride 107 mmol/L (98-107) 11/29/19 07:15 Carbon Dioxide 26 mmol/L (21-32) 11/29/19 07:15 Anion Gap 7 MMOL/L (8-16) L 11/29/19 07:15 BUN 16.8 mg/dL (7-18) 11/29/19 07:15 Creatinine 1.0 mg/dL (0.55-1.3) 11/29/19 07:15 Est GFR (CKD-EPI)AfAm 101.26 11/29/19 07:15 Est GFR (CKD-EPI)NonAf 87.37 11/29/19 07:15 Random Glucose 96 mg/dL (74-106) 11/29/19 07:15 Calcium 8.3 mg/dL (8.5-10.1) L 11/29/19 07:15 Total Bilirubin 0.5 mg/dL (0.2-1) 11/29/19 07:15 AST 51 U/L (15-37) H 11/29/19 07:15 ALT 52 U/L (13-61) 11/29/19 07:15 Alkaline Phosphatase 93 U/L (45-117) 11/29/19 07:15 Total Protein 6.8 g/dl (6.4-8.2) 11/29/19 07:15 Albumin 3.2 g/dl (3.4-5.0) L 11/29/19 07:15 Syphilis Serology Non-reactive (NONREACTIVE) 11/29/19 07:15 COVID-19 (MELVIN) Not detected (Not Detected) 11/28/19 14:25 Labs noted with low wbc. Assessment: 12/01/19 12:11 AOX3, in no acute respiratory distress. Full ROM, ambulating in the unit. Mild Withdrawal symptoms. Leukopenia. For d/c tomorrow. 12/01/19 12:13 Plan: continue detox. Repeat cbc in AM before possible d/c to rehab. D/C in AM.
[2019-12-01] MEDS: ALBUTEROL SO4 HFA INHALER IH PRN (12:52)
[2019-12-01] MEDS: ALBUTEROL SO4 0.083% IH SOL 2.5 MG/3 ML VIAL.NEB. NEB PRN (13:00)
--- NOTE | 2019-12-01 13:37 | PN ---
[facility] Progress Note Note: S: Pt c/o sob and chest tightness. Denies any headache, palpitation, or n/v. O: Vital Signs 12/01/19 12/01/19 12/01/19 06:24 07:33 09:00 Temperature 97.3 F L 98.2 F 98.2 F Pulse Rate 44 L 71 69 Respiratory 18 18 18 Rate Blood Pressure 110/74 104/60 103/58 L O2 Sat by Pulse 98 98 96 Oximetry (%) A: AOX3, appears in distress. Pt states she was intubated twice due to severe asthma exacerbation. Shortness of breath. B/l wheezing on lung acosta. P: Transfer to [facility] ED for evaluation. Verbal report given to Dr. Ch.
[2019-12-01 14:03] VITALS: BP 121/60; PULSE 20; TEMP 98.6
[2019-12-02] MEDS ORDERED: chlordiazePOXIDE HCL 10 MG CAPSULE PO ONE (05:00)
== END 2019-12-01 16:00 | disposition short-term general hospital (02) | DRG 773 ==
LOC: YASAS 12:09 → Y6N 14:15
PROVIDERS: ADMIT Allergy & Immunology; ATTEND Allergy & Immunology
PROC: HZ2ZZZZ Detoxification Services for Substance Abuse Treatment (ICD-10-PCS; principal; 2019-11-28)
DX: F10.230 Alcohol dependence with withdrawal, uncomplicated (principal); F11.23 Opioid dependence with withdrawal; F14.21 Cocaine dependence, in remission; F13.230 Sedative, hypnotic or anxiolytic dependence with withdrawal, uncomplicated; F17.210 Nicotine dependence, cigarettes, uncomplicated; F19.282 Other psychoactive substance dependence with psychoactive substance-induced sleep disorder; F32.9 Major depressive disorder, single episode, unspecified; F64.0 Transsexualism; B20 Human immunodeficiency virus [HIV] disease; J45.909 Unspecified asthma, uncomplicated; D72.819 Decreased white blood cell count, unspecified; D64.9 Anemia, unspecified; M54.5 Low back pain; L85.3 Xerosis cutis; G89.29 Other chronic pain; B18.2 Chronic viral hepatitis C; Z62.810 Personal history of physical and sexual abuse in childhood; R07.9 Chest pain, unspecified; R06.2 Wheezing; R06.02 Shortness of breath; Z85.71 Personal history of Hodgkin lymphoma; Z88.1 Allergy status to other antibiotic agents; Z88.2 Allergy status to sulfonamides; Z91.013 Allergy to seafood; Z56.0 Unemployment, unspecified; Z87.890 Personal history of sex reassignment
CPT/HCPCS: 36415; 80053; 85027; 86780; 94640; U0003